=== PATIENT | male | born 1955 | race African-American/Black ===

== ENCOUNTER 2017-02-16 19:00 | Observation (INO) | payer MEDICAID ==
[~2017-02-16] VITALS: Ht 162.6 cm; Wt 86.1 kg
--- NOTE | ~2017-02-16 | HEMODYNAMI ---
PATIENT:KANDICE QUINONEZ MEDICAL RECORD: [id number] : 57 LOCATION:[facility] D.2104 ADMISSION DATE: 02/16/17 Generatedon:02/17/201716:51 Patient name: KANDICE QUINONEZ Patient #: [id number] SSN: : 1955 Date of study: 02/17/2017 Page: Of Hemodynamic Procedure Report Patient Data Patient Demographics Procedure consent was obtained First Name: KANDICE Gender: Male Last Name: DEVI : 1955 [facility] Initial: J Age: 61 year(s) Patient #: [id number] Race: Black Additional ID: [id number] Contact details Address: [address] [place] [address] State: [place] City: [facility] [place] Zip code: [address] Past Medical History Allergies Allergen Reaction Date Comments Reported Penicillins 02/17/2017 Codeine 02/17/2017 Other allergy 02/17/2017 hydrocodone, ketorolac, tromethamine Admission Admission Data Admission Date: 02/16/2017 Admission Time: 22:12 Room #: D.2104 Lab Results Lab Result Date: 02/17/2017 Lab Result Time: 0:00 Biochemistry Name Units Result Min Max BUN mg/dl 26 --(----)-* 7 18 Creatinine mg/dl 2 --(----)-* 0.6 1.3 CBC Name Units Result Min Max Hemoglobin g/dl 13.5 --(*---)-- 13.5 17.5 Procedure Procedure Types Cath Procedure Diagnostic Procedure LHC LHC w/Coronaries Miscellaneous Procedures Moderate Sedation up to 15 minutes Procedure Description Procedure Date Procedure Date: 02/17/2017 Procedure Start Time: 16:40 Procedure End Time: 16:47 Procedure Staff Name Function Jones Bhardwaj MD Performing Physician Beatrice Gaffney RT Scrub Sarah Brito RN Nurse Rob Francois RT Monitor Cirilo Weiner RT Battery Container Tester Procedure Data Cath Procedure Fluoroscopy Diagnostic fluoroscopy Total fluoroscopy Time: 1.3 time: 1.3 min min Diagnostic fluoroscopy Total fluoroscopy dose: 327 dose: 327 mGy mGy Contrast Material Contrast Material Type Amount (ml) Isovue 300 42 Entry Location Entry Primary Successful Side Size Upsize Upsize Entry Closure Succes sful Closure Location (Fr) 1 (Fr) 2 (Fr) Remarks Device Remarks Femoral Right 5 Fr Vascade artery Closure System Diagnostic catheters Device Type Used For End Catheter Placement Cordis 5Fr Pigtail LV Angiography Catheter (MP) Cordis 5Fr JL 4.0 Left Coronary Catheter (MP) Angiography Cordis 5Fr 3DRC Catheter Right Coronary (MP) Angiography Procedure Complications No complications Procedure Medications Medication Administration Route Dosage Versed I.V. 1 mg Fentanyl I.V. 50 mcg Oxygen NC 2 l/min Heparin Flush Bag added to field 2 bags (1000units/500ml NS) Heparin Flush Bag added to field 2 bags (1000units/500ml NS) Lidocaine 2% added to field 20 Versed I.V. 1 mg Fentanyl I.V. 50 mcg Versed I.V. 0.5 mg Fentanyl I.V. 25 mcg Hemodynamics Rest HGB: 13.5 (g/dl) Heart Rate: 74 (bpm) Snapshots Pre Cath Intra NCS Post Cath Vital Signs Time Heart Resp SPO2 etCO2 OW1hayq NIBP (mmHg) Rhythm Pain Sedatio n Rate (ipm) (%) (mmHg) (mmHg) Status Level (bpm) 16:31:49 74 17 97 0 0 152/101(124) NSR 0 (11) 10(A) , No pain 16:35:57 81 17 99 0 0 135/98(122) NSR 0 (11) 10(A) , No pain 16:40:07 70 15 86 0 0 145/109(124) NSR 0 (11) 10(A) , No pain 16:44:21 88 16 94 0 0 148/105(124) NSR 0 (11) 9(A) , No pain 16:50:03 87 19 98 0 0 152/113(131) NSR 0 (11) 9(A) , No pain Medications Time Medication Route Dose Verified Delivered Reason Notes Effec tiveness by by 16:24:00 Oxygen NC 2 Jones Goldman used for l/min Benton Bhardwaj MD procedure 16:24:02 Heparin Flush added 2 Jones Goldman used for Bag to bags Benton Bhardwaj MD procedure (1000units/500ml field NS) 16:24:16 Lidocaine 2% added 20ml Jones Landersrey used for to vial Benton Bhardwaj MD procedure field 16:37:58 Versed I.V. 1 mg Jones Sarah for Benton Brito RN sedation 16:38:06 Fentanyl I.V. 50 Jones Sarah for mcg Benton Brito RN sedation 16:38:42 Heparin Flush added 2 Jonesalden Goldman used for Bag to bags Benton Bhardwaj MD procedure (1000units/500ml field NS) 16:40:01 Versed I.V. 1 mg Jones Sarah for Benton Brito RN sedation 16:40:05 Fentanyl I.V. 50 Jones Sarah for mcg Benton Brito RN sedation 16:42:06 Versed I.V. 0.5 Jones Sarah for mg Benton Brito RN sedation 16:42:12 Fentanyl I.V. 25 Jones Sarah for mcg Benton Brito RN sedation Procedure Log Time Note 16:13:57 ACC Patient presents with Unstable Angina CCS Anginal Class 3--Marked limitation of physical activity, angina occurs with ordinary activity.. 16:13:58 Diagnostic Cath status Urgent 16:14:00 Cirilo PARKS(R) sent for patient. Start room use. 16:14:07 Time tracking: Regular hours 16:14:11 Plan of Care:Hemodynamics will remain stable., Cardiac rhythm will remain stable., Comfort level will be maintained., Respiratory function will remain adequate., Patient/ family verbilizes understanding of procedure., Procedure tolerated without complication., Recovers from procedure without complications.. 16:23:52 Patient received from Med II to CCL 1 Alert and oriented. Tansferred to table in Supine position. 16:23:54 Warm blankets applied, and venancio hugger turned on for patient comfort. 16:23:55 Correct patient and procedure confirmed by team. 16:23:58 Signed procedure consent form obtained from patient. 16:24:00 Oxygen 2 l/min NC was administered by Jones Bhardwaj MD; used for procedure; 16:24:02 Heparin Flush Bag (1000units/500ml NS) 2 bags added to field was administered by Jones Bhardwaj MD; used for procedure; 16:24:16 Lidocaine 2% 20ml vial added to field was administered by Jones Bhardwaj MD; used for procedure; 16:30:45 Vital chart was started 16:33:48 Baseline sample Acquired. 16:33:52 Rhythm: sinus rhythm 16:33:53 Full Disclosure recording started 16:34:09 H&P Date Dictated: 02/17/2017 Within 30 days and on chart.. 16:34:11 Pre-procedure instructions explained to patient. 16:34:11 Pre-op teaching completed and patient verbalized understanding. 16:34:35 Family unavailable. 16:34:38 Patient NPO since Lunch. 16:34:47 Patient allergic to Penicillins 16:34:51 Patient allergic to Codeine 16:35:25 Patient allergic to Other allergyhydrocodone, ketorolac, tromethamine 16:35:28 Is the patient allergic to Iodine/contrast media? No. 16:35:33 Is patient on blood thinner?No 16:35:35 Patient diabetic? No. 16:35:37 ----Pre-sedation anethsthesia assessment.---- 16:35:39 Previous problem with sedation/anesthesia? No ? 16:35:40 Snore? Yes 16:35:41 Sleep apnea? No 16:35:43 Deviated septum? No 16:35:45 Opens mouth fully? Yes 16:35:46 Sticks out tongue? Yes 16:36:00 Airway obstruction? Yes lung thrombectomy 16:36:05 Dentures? Yes out 16:36:10 Pre procedure: right dorsailis pedis pulse 1+ Palpable, but thready & weak; easily obliterated 16:36:14 Patient pain scale 0/10 ?. 16:36:18 IV patent on arrival in left hand with 0.9% NaCl at 10ml/hr. 16:36:40 Lab Result : Creatinine 2 mg/dl 16:36:40 Lab Result : BUN 26 mg/dl 16:36:40 Lab Result : Hemoglobin 13.5 g/dl 16:37:04 Lab results completed and on chart. 16:37:06 Right groin area was prepped with chlora-prep and draped in sterile fashion 16:37:07 Alarms reviewed by RRoland N. 16:37:08 Sharps counted by scrub and verified by R.N. 16:37:08 --------ALL STOP TIME OUT------ 16:37:09 Final Timeout: patient, procedure, and site verified with staff and physician. All members of the team are in agreement. 16:37:11 Right groin site verified by team. 16:37:14 Physical assessment completed. ASA score P 2 - A patient with mild systemic disease as per Jones Bhardwaj MD. 16:37:18 Sedation plan: IV Moderate Sedation Versed, Fentanyl 16:37:58 Versed 1 mg I.V. was administered by Sarah Brito RN; for sedation; 16:38:06 Fentanyl 50 mcg I.V. was administered by Sarah Brito RN; for sedation; 16:38:07 Use device set Femoral Dx 16:38:08 Acist Syringe opened to sterile field. 16:38:08 Bag Decanter opened to sterile field. 16:38:08 Medline Cath Pack opened to sterile field. 16:38:09 Terumo 5Fr Edwards Sheath opened to sterile field. 16:38:09 St Codey 260cm J .035 wire opened to sterile field. 16:38:10 Acist Hand Control opened to sterile field. 16:38:10 Acist Manifold opened to sterile field. 16:38:11 Diagnostic Infinity 5Fr Multipack catheter opened to sterile field. 16:38:11 Tegaderm 4 x 4 opened to sterile field. 16:38:42 Heparin Flush Bag (1000units/500ml NS) 2 bags added to field was administered by Jones Bhardwaj MD; used for procedure; 16:39:47 Zero performed for pressure channel P1 16:40:01 Versed 1 mg I.V. was administered by Sarah Brito RN; for sedation; 16:40:05 Fentanyl 50 mcg I.V. was administered by Sarah Brito RN; for sedation; 16:40:06 Procedure started. 16:40:24 Local anesthetic to right femoral artery with Lidocaine 2% by Jones Bhardwaj MD.INITIAL ACCESS ONLY 16:41:22 A 5 Fr sheath was inserted into the Right Femoral artery 16:41:28 A Cordis 5Fr Pigtail Catheter (MP) was advanced over the wire and used for LV Angiography. 16:41:36 LV angiography performed. 16:42:06 Versed 0.5 mg I.V. was administered by Sarah Brito RN; for sedation; 16:42:11 EF : 55 % 16:42:12 Fentanyl 25 mcg I.V. was administered by Sarah Brito RN; for sedation; 16:42:12 Catheter removed. 16:42:19 A Cordis 5Fr JL 4.0 Catheter (MP) was advanced over the wire and used for Left Coronary Angiography. 16:42:48 LCA angiography performed. 16:43:48 Catheter removed. 16:43:53 A Cordis 5Fr 3DRC Catheter (MP) was advanced over the wire and used for Right Coronary Angiography. 16:43:55 RCA angiography performed. 16:45:06 Catheter removed. 16:45:19 Sheath removed intact; hemostasis achieved with Vascade Closure System to the Right Femoral artery. 16:45:27 Vascade 5Fr Closure Device opened to sterile field. 16:45:30 Procedure ended.(Physican Out) 16:46:37 Fluoroscopy time 01.30 minutes. 16:46:42 Fluoroscopy dose: 327 mGy 16:46:42 Flurop Dose total: 327 16:46:50 Contrast amount:Isovue 300 42ml. 16:46:52 Sharps counted by scrub and verified by R.N. 16:46:53 Insertion/operative site no bleeding no hematoma. 16:46:55 Post-op/insertion site Right Femoral artery dressed using a 4 x 4 and Tegaderm. 16:46:58 Post right femoral artery:stable 16:47:00 Post Procedure Pulses reassessed and unchanged 16:47:02 Post procedure: right dorsailis pedis pulse 1+ Palpable, but thready & weak; easily obliterated. 16:47:05 Post procedure rhythm: sinus rhythm 16:47:07 Post procedure instruction explained to patient.Patient verbalizes understanding. 16:47:16 Procedure type changed to Cath procedure, Diagnostic procedure, LHC, LHC w/Coronaries, Miscellaneous Procedures, Moderate Sedation up to 15 minutes 16:47:20 Procedure and supply charges have been captured, reviewed, submitted and are correct. 16:47:35 Procedure Complication : No complications 16:47:37 Vital chart was stopped 16:47:37 See physician's report for complete and final results. 16:47:39 Report given to PCU. 16:47:42 Patient transfered to PCU with Bed. 16:47:44 Procedure ended. 16:47:44 Full Disclosure recording stopped 16:47:46 End room use (Document Last) Device Usage Item Name Manufacture Quantity Catalog Number Hospital Part Current Minima l Lot# / Charge Number Stock Stock Serial# Code Acist Acist 1 21186 489165 681751 313590 20 Syringe Medical Systems Inc Bag Microtek 1 2002S 398131 98743 941468 5 Decanter Medical Inc. Medline Cardinal 1 [id number] 608451 73204 062993 5 Cath Pack Health Terumo 5Fr Terumo 1 [id number] 118435 224625 881401 [address] Codey St Codey 1 [id number] 057998 693138 013351 30 260cm J .035 wire Acist Hand Acist 1 44494 602162 856316 759152 5 Control Medical Systems Inc Acist Acist 1 30784 497931 925502 057734 5 Manifold Medical Systems Inc Diagnostic Cardinal 1 [id number] 361515 54135 733157 30 Infinity Health 5Fr Multipack catheter Tegaderm 4 3M 1 1626W 335600 432516 034192 5 x 4 Cordis 5Fr Cardinal 1 [id number] 5 Pigtail Health Catheter (MP) Cordis 5Fr Cardinal 1 [id number] 5 JL 4.0 Health Catheter (MP) Cordis 5Fr Cardinal 1 864147 5 3DRC Health Catheter (MP) Vascade Cardiva 1 [id number] 954153 24538 842260 10 5Fr Medical, Closure Inc. Device Signature Audit Printer Stage Time Signature Unsigned Intra-Procedure 02/17/2017 Rob Francois 4:51:08 PM RT(R) Signatures Monitor : Rob Francois RT Signature : Date : Time : [facility] [address] [place] [address]
--- NOTE | ~2017-02-16 | OP ---
PATIENT NAME: KANDICE QUINONEZ MEDICAL RECORD: [id number] :57 LOCATION:D.M2 D.2104 ADMISSION DATE:02/16/17 SURGEON: RAJESH JAIN MD OPERATION DATE: 02/17/17 PROCEDURES: 1. Left heart catheterization. 2. Selective coronary angiography. 3. Left ventriculogram. INDICATION: 1. Chest pain. 2. Hypertension. PROCEDURE IN DETAIL: After informed consent was obtained and after detailed explanation of risks, benefits, as well as alternative therapies, the patient elected to proceed with angiogram. The right femoral area was prepped and draped in a normal sterile fashion. The right femoral artery was cannulated via modified Seldinger technique with placement of 5-Portuguese sheath. All catheters exchanged through this sheath. FINDINGS: The left ventriculogram was performed in standard 30 degree CHAO view, reveals good cardiac wall motion throughout all segments. Overall ejection fraction estimated at 60%. SELECTIVE CORONARY ANGIOGRAPHY: Left main, left anterior descending, left circumflex, and right coronary artery are all smooth-walled vessels with no angiographic evidence of coronary artery disease. OVERALL IMPRESSION: 1. No angiographic evidence of coronary artery disease. 2. Normal left heart pressure. 3. Chest pain is noncardiac in etiology. No further cardiac workup needs to be ascertained. RAJESH JAIN MD CC: [id number] DICTATION DATE: 02/17/17 1500 AZURE ARCHITECT: SHAYLA 02/18/17 1443 [facility] IN 02/18/17 [facility] [address] [place] [address]
[~2017-02-16 19:00] MED LIST: CIPRO500 MG PO; COUMADIN5 MG PO; COZAAR50 MG PO; DILAUDID8 MG PO; MAXIPIME INJ2 GM IV; NO HOME MED; NORCO 10/325 TA1 TA1 PO; PERCOCET 10/3251 TA1 PO; SALINE FLUSH10 ML IJ; ZESTRIL10 MG PO; ZYVOX600 MG PO; [UNRECOGNIZED DRUG - OTHER]
[2017-02-16 19:38] LABS: BASOPHILS 0.3 % (0-2); EOSINOPHILS 2.3 % (0-7); HEMATOCRIT 43.6 % (42.0-54.0); HEMOGLOBIN 15.5 g/dL (13.5-17.5); IMMATURE GRANULOCYTES 0.2 % (0-5); LYMPHOCYTES 38.5 % (15-50); MCH 28.5 pg (26.0-34.0); MCHC 35.6 g/dL (31.0-37.0); MCV 80.1 fL (80.0-100.0); MEAN PLATELET VOLUME 9.4 fL (7.4-10.4); MONOCYTES 9.9 % (2-11); NEUTROPHILS 48.8 % (40-80); PLATELET COUNT 175 10x3/uL (130-400); RBC 5.44 10x6/uL (4.20-6.10); RDW 14.9 % (11.5-14.5); WBC 10.6 10x3/uL (4.8-10.8)
[2017-02-16 20:07] LABS: ALT (SGPT) 44 U/L (10-68); CALC OSMOLALITY 283 mosm/kg (275-300); CALCIUM 9.2 mg/dL (8.5-10.1); CARBON DIOXIDE 20.5 mmol/L (21.0-32.0); CHLORIDE - SERUM 101 mmol/L (98-107); CHOL - HDL RATIO 2.2 ratio (2.3-4.9); CHOLESTEROL, TOTAL 202 mg/dL (0-200); CKMB 2.2 U/L (0.0-3.6); CREATINE KINASE 416 UL (21-232); CREATININE - SERUM 2.7 mg/dL (0.6-1.3); GLUCOSE 92 mg/dL (74-106); HDL CHOLESTEROL 94 mg/dL (32-96); LDL CHOLESTEROL 92 mg/dL (0-100); POTASSIUM - SERUM 3.6 mmol/L (3.5-5.1); PROTEIN - SERUM 8.1 g/dL (6.4-8.2); SODIUM 139 mmol/L (136-145); TRIGLYCERIDE 83 mg/dL (30-200); UREA NITROGEN 28 mg/dL (7-18); eGFR NON AFRICAN AMERICAN 26 mL/min (90-120)
[2017-02-16 20:20] LABS: ALKALINE PHOSPHATASE 67 U/L (46-116); TROPONIN-I < 0.017 ng/mL (0.000-0.060)
[2017-02-16 21:35] LABS: APPEARANCE CLEAR (CLEAR); BILIRUBIN NEGATIVE (NEGATIVE); COLOR YELLOW (YELLOW); GLUCOSE NEGATIVE (NEGATIVE); KETONE NEGATIVE (NEGATIVE); LEUKOCYTE ESTERASE NEGATIVE (NEGATIVE); NITRITE NEGATIVE (NEGATIVE); PROTEIN NEGATIVE (NEGATIVE); SPECIFIC GRAVITY 1.015 (1.005-1.020); UROBILINOGEN NORMAL (NORMAL)
--- NOTE | 2017-02-16 22:19 | NUR ---
REPORT RECIEVED FROM ANNIE RASMUSSEN FROM ER. PT ARRIVING BY WHEELCHAIR APPROX 15 MIN
[2017-02-16 22:26] LABS: CREATINE KINASE 446 UL (21-232)
[2017-02-16 22:27] LABS: TROPONIN-I < 0.017 ng/mL (0.000-0.060)
--- NOTE | 2017-02-16 22:54 | NUR ---
PT ARRIVED VIA WHEELCHAIR. IV TO LEFT ARM. PT STATES FEELING DIZZY BUT WANTS A SHOWER. WILL MONITOR PT WHILE UP IN SHOWER. PT IV TO LEFT ARM S/L. PT STATES PAIN MED DID NOT HELP PAIN ONLY MADE HIS EARS RING. PT SITTING IN CHAIR NOW. DENIES ANY NEEDS OTHER THAN PAIN AND SHOWER
--- NOTE | 2017-02-17 00:45 | NUR ---
PT RESTING AND STILL TALKING ABOUT PAST EVENTS. NS INFUSING AT 200ML/HR LEFT IV DILAUDID GIVEN FOR PAIN 03/11. PT WANTS TO REST. WILL TRY TO CLUSTER CARE WITH TECH. PT DENIES ANY OTHER NEEDS. WILL CONTINUE TO MONITOR
--- NOTE | 2017-02-17 02:33 | NUR ---
PT UP AND WALKING AROUND MED 2 AND WENT DOWN TO VENDING AREA TO LOOK FOR A BURRITO. PT VERBALIZED UNDERSTANDING THAT HE NEEDED TO STAY ON HOSPITAL PROPERTY FOR HIS SAFTEY. TRAINING SYSTEMS OFFICER IS ON. WILL CONTINUE TO WATCH FOR PT.
[2017-02-17 04:51] VITALS: BP 154/80
[2017-02-17 05:36] VITALS: BP 158/120
[2017-02-17 06:14] LABS: BASOPHILS 0.2 % (0-2); EOSINOPHILS 3.7 % (0-7); HEMATOCRIT 39.9 % (42.0-54.0); HEMOGLOBIN 13.5 g/dL (13.5-17.5); IMMATURE GRANULOCYTES 0.2 % (0-5); MCH 27.3 pg (26.0-34.0); MCHC 33.8 g/dL (31.0-37.0); MCV 80.8 fL (80.0-100.0); MEAN PLATELET VOLUME 10.2 fL (7.4-10.4); MONOCYTES 11.6 % (2-11); NEUTROPHILS 35.3 % (40-80); PLATELET COUNT 175 10x3/uL (130-400); RBC 4.94 10x6/uL (4.20-6.10); RDW 14.8 % (11.5-14.5)
[2017-02-17 07:04] LABS: CALC OSMOLALITY 280 mosm/kg (275-300); CALCIUM 8.4 mg/dL (8.5-10.1); CARBON DIOXIDE 24.3 mmol/L (21.0-32.0); CHLORIDE - SERUM 103 mmol/L (98-107); CKMB 2.5 U/L (0.0-3.6); CREATINE KINASE 378 UL (21-232); GLUCOSE 103 mg/dL (74-106); POTASSIUM - SERUM 3.5 mmol/L (3.5-5.1); SODIUM 138 mmol/L (136-145); TROPONIN-I < 0.017 ng/mL (0.000-0.060); UREA NITROGEN 26 mg/dL (7-18); eGFR NON AFRICAN AMERICAN 36 mL/min (90-120)
--- NOTE | 2017-02-17 08:57 | NUR ---
INTRODUCED MYSELF TO PT PRIMARY RN FOR TODAYS SHIFT. PT A&O RESTING IN BED EATING BREAKFAST. PT C/O CHEST PAIN WITHOUT RADIATING ANYWHERE AND CHRONIC BACK PAIN. REQUESTING AND PROVIDED WITH PRN DILAUDID. REPLACED NS FLUID BAG AND STARTED VIA L.AC PIV WITH HANH CDI AND SWAB CAPS IN USE. RATE @75ML/HR PER VERBAL ORDER FROM MARIBEL OROPEZA APN AT BEDSIDE. MARIBEL GOING OVER DISEASE PROCESS AND TALKED WITH PT ABOUT HAVING A HEART CATH LATER TODAY WITH . PT VERBALIZED UNDERSTANDING AND WANTS IT DONE. PT IS TO BE NPO AFTER BREAKFAST AND VERBALIZED UNDERSTANDING. NO FURTHER NEEDS AT THIS TIME. CL IN REACH, BED IN LOWEST, SIDE RAILS X2. WILL CPOC.
[2017-02-17 09:07] VITALS: BP 142/92
[2017-02-17 10:07] LABS: CKMB 2.6 U/L (0.0-3.6); CREATINE KINASE 406 UL (21-232); TROPONIN-I < 0.017 ng/mL (0.000-0.060)
--- NOTE | 2017-02-17 11:17 | NUR ---
PT DEMANDING HIS WALLET BE LOCKED UP IN SAFE PRIOR TO PROCEDURE. CALLED ADMINISTRATIONS AND BELONGINGS WERE VERIFIED AND WITNESSED AND SENT TO SAFE. NO FURTHER NEEDS AT THIS TIME.
[2017-02-17 12:08] VITALS: BP 172/79
[2017-02-17 13:51] VITALS: Ht 162.6 cm; Wt 86.1 kg
--- NOTE | 2017-02-17 15:30 | NUR ---
CATH CALLED FOR PRE-OP AND IT WAS COMPLETED. PT READY TO LEAVE FOR HEART CATH. DENIES ANY QUESTIONS OR CONCERNS. CATH TEAM TAKING PT AT THIS TIME. NO CURRENT NEEDS. WILL CPOC.
[2017-02-17 16:32] VITALS: BP 132/85
--- NOTE | 2017-02-17 17:18 | NUR ---
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 VSS AND BEING MONITERED Q15 PER POLICY. MICHEL DRSG CDI NO S/S OF HEMATOMA OR BLEEDING NOTED. PT IS ON BEDREST FOR 2 HOURS AND VERBALIZED UNDERSTANDING TO LAY FLAT FOR THAT DURATION. INITIATED FLUIDS BACK VIA L.AC PIV WITH DRSG CDI AND SWAB CAPS IN USE NS @100ML/HR. PT VERY SLEEPY AND HAS FAMILY AT BEDSIDE NO CURRENT NEEDS. WILL CTM.
--- NOTE | 2017-02-17 18:02 | NUR ---
VSS AND STILL BEING RECORDED AND MONITERED PER POLICY. PT RESTING IN BED WITH EYES CLOSED. PERIPHERAL PULSES INTACT. R.GROIN DRSG CDI, NO S/S OF BLEEDING OR HEMATOMA NOTED. WILL CTM.
[2017-02-17 23:32] VITALS: BP 150/95
--- NOTE | 2017-02-18 00:42 | NUR ---
RECEIVED IN BEDROOM. RESTING IN BED WITH EYES CLOSED. RESPONDS TO VOICE. DENIES NEEDS AT THIS TIME. CCALL LIGHT IN REACH. BED ALARM ON.
[2017-02-18 06:24] VITALS: BP 146/96
--- NOTE | 2017-02-18 08:01 | NUR ---
PT RESTING IN BED, DENIES PAIN. RT GROIN DRESSING CDI. PT DENIES NEEDS. WCTM.
[2017-02-18] MEDS ORDERED: LISINOPRIL-HCTZ1 T13 PO (08:05)
[2017-02-18 08:42] VITALS: BP 146/98
--- NOTE | 2017-02-18 09:00 | NUR ---
PT REQ AND REC'D PRN PAIN MEDICATION. PT DENIES FURTHER NEEDS. WCTM.
--- NOTE | 2017-02-18 11:21 | NUR ---
PT DISCHARGE PAPERS REVIEWED. NEW PRESCRIPTION GIVEN TO PATIENT. PT WAITING FOR RIDE AT THIS TIME. WCTM.
--- NOTE | 2017-02-18 11:43 | NUR ---
PT ESCORTED DOWN TO LOBBY BY STAFF VIA WC. PT TO DC HOME WITH FAMILY.
== END 2017-02-18 11:51 | disposition home or self-care (01) ==
LOC: D.ER 19:00 → OBSVTIME 22:12 → D.M2 22:12
PROVIDERS: Emergency Medicine; Family Medicine; ADMIT Family Medicine
DX: R07.89 Other chest pain (principal); I10 Essential (primary) hypertension

== ENCOUNTER 2017-07-12 17:56 | Emergency (ER) | payer MEDICAID ==
[~2017-07-12 17:56] MED LIST changes: +LISINOPRIL-HCTZ1 T13 PO
[2017-08-12] MEDS ORDERED: NORVASC10 MG PO (10:21)
[2017-08-12] MEDS ORDERED: CHLORTHALIDONE25 MG PO (10:22)
[2017-08-12] MEDS ORDERED: METOPROLOL TART25 MG PO (10:24)
== END 2017-07-12 20:32 | disposition home or self-care (01) ==
LOC: D.ER 17:56
DX: S80.12XA Contusion of left lower leg, initial encounter (principal); W22.8XXA Striking against or struck by other objects, initial encounter; Y93.89 Activity, other specified; Y92.012 Bathroom of single-family (private) house as the place of occurrence of the external cause; E11.9 Type 2 diabetes mellitus without complications

== ENCOUNTER 2017-08-06 10:31 | Emergency (ER) | payer MEDICAID ==
[2017-08-12] MEDS ORDERED: NORVASC10 MG PO (10:21)
[2017-08-12] MEDS ORDERED: CHLORTHALIDONE25 MG PO (10:22)
[2017-08-12] MEDS ORDERED: METOPROLOL TART25 MG PO (10:24)
== END 2017-08-06 13:16 | disposition home or self-care (01) ==
LOC: D.ER 10:31
DX: S62.102A Fracture of unspecified carpal bone, left wrist, initial encounter for closed fracture (principal); Y04.2XXA Assault by strike against or bumped into by another person, initial encounter; Y93.89 Activity, other specified; Y92.89 Other specified places as the place of occurrence of the external cause

== ENCOUNTER 2017-08-13 05:50 | Day surgery (SDC) | payer MEDICAID ==
[2017-08-12 11:18] LABS: HEMATOCRIT 42.4 % (42.0-54.0); HEMOGLOBIN 14.4 g/dL (13.5-17.5); MCV 82.3 fL (80.0-100.0); MEAN PLATELET VOLUME 8.4 fL (7.4-10.4); RBC 5.15 10x6/uL (4.20-6.10); RDW 15.1 % (11.5-14.5); WBC 8.2 10x3/uL (4.8-10.8)
[2017-08-12 11:43] LABS: ANION GAP 11.4 mmol/L (8-16); CALCIUM 9.4 mg/dL (8.5-10.1); CARBON DIOXIDE 29.4 mmol/L (21.0-32.0); CREATININE - SERUM 1.2 mg/dL (0.6-1.3); POTASSIUM - SERUM 3.8 mmol/L (3.5-5.1)
[~2017-08-13] VITALS: Ht 175.3 cm; Wt 82.6 kg
--- NOTE | ~2017-08-13 | OP ---
PATIENT NAME: KANDICE QUINONEZ MEDICAL RECORD: [id number] :57 LOCATION:[facility] ADMISSION DATE: SURGEON: RED JUAREZ DO DATE OF OPERATION: 08/13/2017 PROCEDURE PERFORMED: Left fifth metacarpal head open reduction internal fixation. PREOPERATIVE DIAGNOSIS: Left fifth metacarpal head fracture. POSTOPERATIVE DIAGNOSIS: Left fifth metacarpal head fracture. INDICATIONS: Mr. Quinonez is a 62-year-old male who struck a tiller in his porch approximately 2 weeks ago and sustained a fifth metacarpal what appeared to be neck fracture and was displaced. He was seen in my clinic yesterday and said it bothered him and did not want to have the pain, the deformity, it was severely angulated and the head was subluxed inferiorly to the metacarpal shaft, he wanted it fixed. He was consented for a closed reduction percutaneous pinning; however, he was informed that if we were not able to do this closed, we would do an open reduction internal fixation. He was okay with that. SURGEON: Red Juarez DO DESCRIPTION OF PROCEDURE: The patient was taken to the operative suite, laid in supine position, given vancomycin preoperatively due to his PENICILLIN allergy. The left upper extremity was prepped and draped with a tourniquet above the elbow. Timeout was performed. Everyone was in agreement with the correct side, site and the patient. The attempt with the reduction closed with the port pin and this did not work, could not get the reduction. We then opened with an incision over the ulnar side of the hand, on the ulnar side of the fifth metacarpal at the distal extent of it. Careful dissection was made down to the capsule and the capsule was incised on the ulnar side. The fracture was encountered and reduced, seemed to be a large head split fracture with severe comminution. It was decided at that time we would put a plate on it, got somewhat of reduction and put a plate on the shaft and then I was only able to get one locking screw into the head. Once this was done, the more ulnar fragment lag screw was placed. These were 1.2 lag screws. A lag screw was placed from ulnar to radial and diagonal for oblique fashion to try to get some of the more comminuted fracture piece reduced. Then, the fracture was reduced to the shaft and a second screw was put into the plate in the shaft holding reduction in adequate position. X-rays were taken. The tourniquet was let down at 63 minutes, had been put up prior the incision, after the upper extremity was exsanguinated with an Esmarch. Once this was done, the tourniquet was let down and coagulation was made and a DBM was placed in the defect. It was there due to severe comminution and the capsule was then closed with 4-0 Ethibond in a [id number] fashion. The skin was then closed with 3-0 Vicryl in inverted interrupted and 5-0 Monocryl was run on the skin. Steri-Strips were placed on the skin and then 10 mL of 0.5% Marcaine were injected around the incision. After this was done, Adaptic, 4 x 4s, Webril and a splint was placed on the patient and an Ward wrap was placed over that. The patient was awakened and taken to recovery in stable condition. Blood loss approximately 220 mL. TRANSINT:[id number] Voice Confirmation ID: [id number] DOCUMENT ID: [id number] OPERATIVE REPORT [id number] KANDICE QUINONEZ,RED Beebe DO at 0926 CC: [id number] DICTATION DATE: 08/13/17 1045 LEAD TRAINER: 08/13/17 1333 [facility] 08/13/17 [facility] [address] [place] [address]
[~2017-08-13 05:50] MED LIST changes: +CHLORTHALIDONE25 MG PO; +METOPROLOL TART25 MG PO; +NORVASC10 MG PO
[2017-08-13 06:59] VITALS: Ht 175.3 cm; Wt 82.6 kg
[2017-08-13] MEDS ORDERED: BACTRIM DS TABL1 TAB PO (10:39)
[2017-08-13] MEDS ORDERED: PERCOCET 10/3251 TA1 PO (10:39)
== END 2017-08-13 12:30 | disposition home or self-care (01) ==
LOC: D.OPS 05:50 → D.PAN 11:00 → D.OPS 12:30
PROVIDERS: Anesthesiology
DX: S62.337A Displaced fracture of neck of fifth metacarpal bone, left hand, initial encounter for closed fracture (principal); X58.XXXA Exposure to other specified factors, initial encounter; F17.200 Nicotine dependence, unspecified, uncomplicated; I10 Essential (primary) hypertension; E11.9 Type 2 diabetes mellitus without complications; Z01.812 Encounter for preprocedural laboratory examination

== ENCOUNTER 2018-01-15 01:48 | Emergency (ER) | payer MEDICAID ==
[~2018-01-15] VITALS: Ht 175.3 cm; Wt 84.1 kg
[~2018-01-15 01:48] MED LIST changes: +BACTRIM DS TABL1 TAB PO
[2018-01-15 01:53] VITALS: Ht 175.3 cm; Wt 84.1 kg
[2018-01-15 02:39] LABS: BASOPHILS 0.1 % (0-2); EOSINOPHILS 1.7 % (0-7); HEMATOCRIT 39.8 % (42.0-54.0); HEMOGLOBIN 14.3 g/dL (13.5-17.5); IMMATURE GRANULOCYTES 0.4 % (0-5); LYMPHOCYTES 44.6 % (15-50); MCH 28.8 pg (26.0-34.0); MCHC 35.9 g/dL (31.0-37.0); MCV 80.2 fL (80.0-100.0); MEAN PLATELET VOLUME 9.7 fL (7.4-10.4); MONOCYTES 5.1 % (2-11); NEUTROPHILS 48.1 % (40-80); RBC 4.96 10x6/uL (4.20-6.10); RDW 14.6 % (11.5-14.5); WBC 10.4 10x3/uL (4.8-10.8)
[2018-01-15 02:56] LABS: PLATELET COUNT 155 10x3/uL (130-400)
[2018-01-15 02:59] LABS: ALBUMIN 3.5 g/dL (3.4-5.0); ALKALINE PHOSPHATASE 62 U/L (46-116); ALT (SGPT) 60 U/L (10-68); BILIRUBIN - TOTAL 0.28 mg/dL (0.2-1.3); CALC OSMOLALITY 280 mosm/kg (275-300); CARBON DIOXIDE 23.1 mmol/L (21.0-32.0); CHLORIDE - SERUM 100 mmol/L (98-107); CREATININE - SERUM 1.5 mg/dL (0.6-1.3); POTASSIUM - SERUM 3.4 mmol/L (3.5-5.1); PROTEIN - SERUM 7.5 g/dL (6.4-8.2); SODIUM 137 mmol/L (136-145); UREA NITROGEN 18 mg/dL (7-18); eGFR NON AFRICAN AMERICAN 51 mL/min (90-120)
[2018-01-15 03:00] LABS: GLUCOSE 192 mg/dL (74-106)
[2018-01-15 03:08] LABS: APTT 34.1 SECONDS (22.8-39.4); INR 1.05 (0.85-1.17); PROTIME 13.3 SECONDS (11.6-15.0)
[2018-01-15 03:09] LABS: D-DIMER-QUANTITATIVE 0.28 ug/mLFEU (0.20-0.54)
[2018-01-15 03:10] LABS: CKMB 1.2 U/L (0.0-3.6); CREATINE KINASE 244 UL (21-232); MAGNESIUM - SERUM 2.1 mg/dL (1.8-2.4)
[2018-01-15 03:12] LABS: TROPONIN-I < 0.017 ng/mL (0.000-0.060)
[2018-01-15 09:46] VITALS: BP 168/87
[2018-03-04] MEDS ORDERED: VITAMIN D5000 UNIT PO (09:24)
[2018-03-04] MEDS ORDERED: EZFE 200200 MG PO (09:25)
== END 2018-01-15 09:47 | disposition home or self-care (01) ==
LOC: D.ER 01:48
PROVIDERS: Family Medicine
DX: F10.129 Alcohol abuse with intoxication, unspecified (principal); R07.9 Chest pain, unspecified; E11.9 Type 2 diabetes mellitus without complications; B19.20 Unspecified viral hepatitis C without hepatic coma; I10 Essential (primary) hypertension; F17.200 Nicotine dependence, unspecified, uncomplicated; R00.0 Tachycardia, unspecified

== ENCOUNTER → 2018-02-04 06:51 | Outpatient (CLI) | payer MEDICAID ==
[2018-01-15 01:53] VITALS: BMI 27.3
[~2018-02-04 06:51] MED LIST changes: +EZFE 200200 MG PO; +VITAMIN D5000 UNIT PO
== END | disposition home or self-care (01) ==
LOC: D.MRI 06:51
DX: S46.002D Unspecified injury of muscle(s) and tendon(s) of the rotator cuff of left shoulder, subsequent encounter (principal); X58.XXXA Exposure to other specified factors, initial encounter

== ENCOUNTER 2018-03-07 05:36 | Day surgery (SDC) | payer MEDICAID ==
[2018-03-04 10:12] LABS: HEMATOCRIT 41.7 % (42.0-54.0); HEMOGLOBIN 14.8 g/dL (13.5-17.5); MCHC 35.5 g/dL (31.0-37.0); MCV 81.8 fL (80.0-100.0); MEAN PLATELET VOLUME 9.4 fL (7.4-10.4); RBC 5.1 10x6/uL (4.20-6.10); RDW 14.9 % (11.5-14.5); WBC 7.5 10x3/uL (4.8-10.8)
[2018-03-04 10:34] LABS: ALBUMIN 3.7 g/dL (3.4-5.0); ANION GAP 6.9 mmol/L (8-16); BILIRUBIN - TOTAL 0.42 mg/dL (0.2-1.3); CALCIUM 9.1 mg/dL (8.5-10.1); CARBON DIOXIDE 35.8 mmol/L (21.0-32.0); CREATININE - SERUM 1.2 mg/dL (0.6-1.3); POTASSIUM - SERUM 3.7 mmol/L (3.5-5.1); PROTEIN - SERUM 7.8 g/dL (6.4-8.2)
[~2018-03-07] VITALS: Ht 175.3 cm; Wt 81.6 kg
--- NOTE | ~2018-03-07 | OP ---
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 PROCEDURE: 1. Left shoulder arthroscopy with arthroscopic distal clavicle excision. 2. Arthroscopic subacromial decompression, acromioplasty and bursectomy. SURGEON: Narcisa Blakely MD ANESTHESIA: General. INTRAOPERATIVE COMPLICATIONS: None. SUMMARY OF PATHOLOGIC FINDINGS: The patient had some mild undersurface tearing; however, the rotator cuff at no point had any tearing greater than 50%. There was attritional tearing of the acromial side. The acromion was a type 3 with downward sloping acromion. Acromioclavicular arthritis was noted as well as excoriation of the coracoacromial ligament. OPERATIVE SUMMARY IN DETAIL: After obtaining the appropriate preoperative orthopedic surgery consent as well as anesthetic consultation, evaluation and clearance, the patient was brought to the operating room and placed on the operating table in supine position. After general laryngeal mask airway was administered, the patient was placed in right lateral decubitus position. All pressure points were well padded to include down leg peroneal pad as well as axillary roll. The patient was held firmly to the operating table using vacuum pack suction system. Left upper extremity and shoulder were prepped and draped in routine sterile fashion. The arm was held in the Arthrex traction boom at 30 degrees of forward flexion and 30 degrees of abduction with 10 pounds of traction laterally. Arthroscopy was established at the glenohumeral joint at the posterior portal. Anterior portal was established in the anterior safe interval. Diagnostic arthroscopy revealed the above findings. Attention was turned to the subacromial space. While in the subacromial space, the [place] ablator from [employer] was utilized to denude the undersurface of the acromion of all soft tissue elements and release the coracoacromial ligament. Having completed this, a 5-0 barrel bur was used to perform acromioplasty at the level of acromioclavicular joint. Then, under separate arthroscopic portal under direct visualization, distal clavicle was excised for 1 cm. Having completed this, attention was turned to the rotator cuff. All subacromial bursa was taken down. The rotator cuff was thoroughly explored, debridement of attritional fibers were done; however, the rotator cuff was not seen to be torn on this side. Having completed this, arthroscopy portals were closed in routine interrupted fashion using 4-0 Prolene. Sterile dressing was applied. The patient was awakened, taken to recovery room in stable condition. All final needle and sponge counts were correct. OPERATIVE REPORT [id number] KANDICE QUINONEZ TRANSINT:[id number] Voice Confirmation ID: [id number] DOCUMENT ID: [id number] REDDY DOYLE, NARCISA KNOX at 1558 CC: [id number] DICTATION DATE: 03/07/18 1320 RESTAURANT CULINARY MANAGER: 03/07/18 1401 [facility] 03/07/18 [facility] [address] [place] [address]
[2018-03-07 06:24] VITALS: BP 136/87; Ht 175.3 cm; Wt 81.6 kg
[2018-03-07] MEDS ORDERED: PERCOCET 10/3251 TA1 PO (10:36)
== END 2018-03-07 12:55 | disposition home or self-care (01) ==
LOC: D.OPS 05:36 → D.PAN 10:30 → D.OPS 12:55
PROVIDERS: Anesthesiology
DX: M19.012 Primary osteoarthritis, left shoulder (principal); M25.812 Other specified joint disorders, left shoulder

== ENCOUNTER → 2018-04-15 06:18 | Outpatient (CLI) | payer MEDICAID ==
[2018-03-07 06:24] VITALS: BMI 26.6
== END | disposition home or self-care (01) ==
LOC: D.MRI 06:18
DX: S46.002D Unspecified injury of muscle(s) and tendon(s) of the rotator cuff of left shoulder, subsequent encounter (principal); X58.XXXA Exposure to other specified factors, initial encounter

== ENCOUNTER 2018-05-25 16:56 | Emergency (ER) | payer MEDICAID ==
[~2018-05-25] VITALS: Ht 175.3 cm; Wt 81.8 kg
[2018-05-25 17:01] VITALS: Ht 175.3 cm; Wt 81.8 kg
[2018-05-25] MEDS ORDERED: NORCO 7.5/325 T1 TA1 PO (19:10)
[2018-05-25] MEDS ORDERED: OMNICEF300 MG PO (19:10)
[2018-05-25 22:18] VITALS: BP 158/99
== END 2018-05-25 20:15 | disposition home or self-care (01) ==
LOC: D.ER 16:56
DX: H66.92 Otitis media, unspecified, left ear (principal); E11.9 Type 2 diabetes mellitus without complications; I10 Essential (primary) hypertension; F17.200 Nicotine dependence, unspecified, uncomplicated

== ENCOUNTER 2018-12-16 08:00 | Day surgery (SDC) | payer MEDICAID ==
[2018-12-15 10:43] LABS: BASOPHILS 0.2 % (0-2); HEMATOCRIT 45.6 % (42.0-54.0); HEMOGLOBIN 16.4 g/dL (13.5-17.5); IMMATURE GRANULOCYTES 0.2 % (0-5); LYMPHOCYTES 34.4 % (15-50); MCH 28.1 pg (26.0-34.0); MCV 78.1 fL (80.0-100.0); MEAN PLATELET VOLUME 9.3 fL (7.4-10.4); MONOCYTES 10.5 % (2-11); NEUTROPHILS 53.7 % (40-80); PLATELET COUNT 173 10x3/uL (130-400); RBC 5.84 10x6/uL (4.20-6.10); RDW 14.4 % (11.5-14.5)
[2018-12-15 10:58] LABS: ALBUMIN 4.4 g/dL (3.4-5.0); ANION GAP 9.7 mmol/L (8-16); BILIRUBIN - TOTAL 0.82 mg/dL (0.2-1.3); CALCIUM 9.7 mg/dL (8.5-10.1); CARBON DIOXIDE 31.8 mmol/L (21.0-32.0); CREATININE - SERUM 1.1 mg/dL (0.6-1.3); POTASSIUM - SERUM 3.5 mmol/L (3.5-5.1); PROTEIN - SERUM 8.4 g/dL (6.4-8.2)
[2018-12-15 11:09] LABS: APTT 37.4 SECONDS (22.8-39.4); INR 1.04 (0.85-1.17); PROTIME 13.5 SECONDS (11.6-15.0)
[~2018-12-16 08:00] MED LIST changes: +NORCO 7.5/325 T1 TA1 PO; +OMNICEF300 MG PO; +ZANAFLEX4 MG PO
[2018-12-16 09:05] VITALS: BP 108/78; BMI 26.6
[2018-12-16] MEDS ORDERED: SULFAMETHOXAZOL1 TA3 PO (13:33)
[2018-12-16] MEDS ORDERED: ULTRAM50 MG PO (13:33)
--- NOTE | 2018-12-16 14:56 | NUR ---
PT CONTINUED TO C/O PAIN AT 05/11. DR. CLAY NOTIFIED AND AT BEDSIDE. BLOCK PERFORMED BY DR. CLAY.
--- NOTE | 2018-12-17 06:56 | OP ---
PATIENT NAME: KANDICE QUINONEZ MEDICAL RECORD: [id number] :57 LOCATION:[facility] ADMISSION DATE: SURGEON: RED JUAREZ DO DATE OF OPERATION: 12/16/2018 PROCEDURE PERFORMED: Removal of hardware, left fifth metacarpal. PREOPERATIVE DIAGNOSIS: Painful hardware, left fifth metacarpal. POSTOPERATIVE DIAGNOSIS: Painful hardware, left fifth metacarpal. 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 He underwent open reduction internal fixation and he said recently the hardware has been giving problems and causing some pain. He wanted it out. He is aware of the increased risks of infection, bleeding, damage to nerves and vessels, need for further surgery, another fracture. He is okay with that and signed the consent. SURGEON: Red Juarez DO DESCRIPTION OF PROCEDURE: The patient was taken to the operative suite after given a block by anesthesia, given 2 grams Ancef preoperatively. The left upper extremity was prepped and draped in sterile fashion. Timeout was performed. Everyone was agreeance with the correct side, site, patient and procedure. Incision was then made over the previous incision. Careful dissection was made down to the plate and 2 screws proximally and 1 distally that were in the plate were removed and then the plate was removed. He did have one retained lag screw that was in there. I told him I would not be taking that out and I did not. The tourniquet had been inflated prior to start of procedure and was up for 9 minutes, it was then let down. Any bleeding was coagulated with the bipolar. The capsule of the metacarpophalangeal joint was then closed with 3-0 Vicryl in [id number] fashion and then the skin was closed with 5-0 Monocryl in inverted interrupted fashion. Steri-Strips placed on the skin. Adaptic, 4 x 4's, cast padding and a 3-inch Ward wrap was then placed on the patient. He is awakened and taken to recovery in stable condition. BLOOD LOSS: Minimal. COMPLICATIONS: None. TRANSINT:[id number] Voice Confirmation ID: [id number] DOCUMENT ID: [id number] RED JUAREZ DO at 0656 CC: [id number] DICTATION DATE: 12/16/18 1329 IMPORT COORDINATOR: 12/16/18 2133 [facility] 12/16/18 [id number] [place] [address]
== END 2018-12-16 17:08 | disposition home or self-care (01) ==
LOC: D.OPS 08:00 → D.PAN 11:00 → D.OPS 11:00
PROVIDERS: Anesthesiology; ATTEND Orthopaedic Surgery
DX: T84.84XA Pain due to internal orthopedic prosthetic devices, implants and grafts, initial encounter (principal); Z01.812 Encounter for preprocedural laboratory examination

== ENCOUNTER → 2018-12-20 08:32 | Outpatient (CLI) | payer MEDICAID ==
[2018-12-16 09:05] VITALS: BMI 26.6
[~2018-12-20 08:32] MED LIST changes: +SULFAMETHOXAZOL1 TA3 PO; +ULTRAM50 MG PO
== END | disposition home or self-care (01) ==
LOC: D.CT 12-19 11:30
PROVIDERS: ATTEND Nurse Practitioner Acute Care
DX: R77.2 Abnormality of alphafetoprotein (principal)

== ENCOUNTER → 2019-02-21 13:57 | Outpatient (CLI) | payer MEDICAID | END | disposition home or self-care (01) | LOC: D.CT 13:57 | PROVIDERS: ATTEND Nurse Practitioner Acute Care | DX: B18.2 Chronic viral hepatitis C (principal) ==

== ENCOUNTER 2019-06-16 05:11 | Emergency (ER) | payer MEDICAID ==
[~2019-06-16] VITALS: Ht 175.3 cm; Wt 79.5 kg
[2019-06-16 05:17] VITALS: Ht 175.3 cm; Wt 79.5 kg
[2019-06-16 05:48] LABS: BASOPHILS 0.2 % (0-2); EOSINOPHILS 0.3 % (0-7); HEMATOCRIT 45.8 % (42.0-54.0); HEMOGLOBIN 15.4 g/dL (13.5-17.5); IMMATURE GRANULOCYTES 0.4 % (0-5); LYMPHOCYTES 45.3 % (15-50); MCH 27.9 pg (26.0-34.0); MCHC 33.6 g/dL (31.0-37.0); MEAN PLATELET VOLUME 9.5 fL (7.4-10.4); MONOCYTES 3.7 % (2-11); NEUTROPHILS 50.1 % (40-80); PLATELET COUNT 193 10x3/uL (130-400); RBC 5.52 10x6/uL (4.20-6.10); RDW 14.6 % (11.5-14.5)
[2019-06-16 05:55] LABS: UDS - AMPHET POSITIVE QUAL (NEGATIVE); UDS - BARB NEGATIVE QUAL (NEGATIVE); UDS - BENZO NEGATIVE QUAL (NEGATIVE); UDS - COCAINE NEGATIVE QUAL (NEGATIVE); UDS - OPIATE NEGATIVE QUAL (NEGATIVE); UDS - PCP NEGATIVE QUAL (NEGATIVE); UDS - THC POSITIVE QUAL (NEGATIVE)
[2019-06-16 06:01] LABS: APTT 36.6 SECONDS (22.8-39.4); INR 1.17 (0.85-1.17); PROTIME 14.4 SECONDS (11.6-15.0)
[2019-06-16 06:07] LABS: CALC OSMOLALITY 289 mosm/kg (275-300); CARBON DIOXIDE 21.3 mmol/L (21.0-32.0); CHLORIDE - SERUM 103 mmol/L (98-107); CREATININE - SERUM 1.3 mg/dL (0.6-1.3); POTASSIUM - SERUM 3.3 mmol/L (3.5-5.1); SODIUM 144 mmol/L (136-145); UREA NITROGEN 15 mg/dL (7-18); eGFR NON AFRICAN AMERICAN 59 mL/min (90-120)
[2019-06-16 06:08] LABS: GLUCOSE 141 mg/dL (74-106)
[2019-06-16 06:20] LABS: ALBUMIN 4.2 g/dL (3.4-5.0); ALKALINE PHOSPHATASE 79 U/L (46-116); ALT (SGPT) 30 U/L (10-68); BILIRUBIN - TOTAL 0.27 mg/dL (0.2-1.3); CKMB 1.8 U/L (0.0-3.6); CREATINE KINASE 184 UL (21-232); MAGNESIUM - SERUM 2.4 mg/dL (1.8-2.4); THYROID STIMULATING HORMONE 0.69 uIU/mL (0.36-3.74)
[2019-06-16 06:25] LABS: TROPONIN-I < 0.017 ng/mL (0.000-0.060)
[2019-06-16 06:49] LABS: APPEARANCE CLEAR (CLEAR); BACTERIA MANY /hpf (NEGATIVE); BILIRUBIN NEGATIVE (NEGATIVE); COLOR YELLOW (YELLOW); EPITHELIAL CELLS RARE /hpf (0-5); GLUCOSE NEGATIVE (NEGATIVE); KETONE NEGATIVE (NEGATIVE); MUCUS <1+ /lpf (NONE SEEN); NITRITE NEGATIVE (NEGATIVE); PROTEIN NEGATIVE (NEGATIVE); RED CELLS - URINE NONE SEEN /hpf (0-5); UROBILINOGEN NORMAL (NORMAL); WHITE CELLS - URINE 0-5 /hpf (NEGATIVE)
[2019-06-16 11:50] VITALS: BP 109/64
[2019-06-22 20:07] LABS: AEROBE ID Final report (()); RESULT 1 Aerococcus urinae (())
[2019-06-26] MEDS ORDERED: PERCOCET 10-321 EAC1 (08:23)
== END 2019-06-16 07:15 | disposition short-term general hospital (02) ==
LOC: D.ER 05:11
PROVIDERS: Family Medicine
DX: R56.9 Unspecified convulsions (principal); R41.82 Altered mental status, unspecified; Z86.19 Personal history of other infectious and parasitic diseases; I10 Essential (primary) hypertension; M19.90 Unspecified osteoarthritis, unspecified site; M81.0 Age-related osteoporosis without current pathological fracture; M54.9 Dorsalgia, unspecified

== ENCOUNTER 2019-06-27 05:00 | Day surgery (SDC) | payer MEDICAID ==
[2019-06-26 08:54] LABS: HEMATOCRIT 40.8 % (42.0-54.0); HEMOGLOBIN 13.8 g/dL (13.5-17.5); MCH 27.7 pg (26.0-34.0); MCHC 33.8 g/dL (31.0-37.0); MCV 81.9 fL (80.0-100.0); MEAN PLATELET VOLUME 8.9 fL (7.4-10.4); RBC 4.98 10x6/uL (4.20-6.10); RDW 14.7 % (11.5-14.5); WBC 7.9 10x3/uL (4.8-10.8)
[~2019-06-27] VITALS: Ht 175.3 cm; Wt 81.6 kg
[~2019-06-27 05:00] MED LIST changes: +PERCOCET 10-321 EAC1
[2019-06-27] MEDS ORDERED: TRAZODONE HCL150 MG PO (05:33)
[2019-06-27 05:39] VITALS: BP 143/91; Ht 175.3 cm; Wt 81.6 kg
[2019-06-27] MEDS ORDERED: PERCOCET 10-321 EAC1 PO (08:04)
--- NOTE | 2019-06-27 11:21 | OP ---
PATIENT NAME: KANDICE QUINONEZ MEDICAL RECORD: [id number] :57 LOCATION:[facility] ADMISSION DATE: SURGEON: RED JUAREZ DO DATE OF OPERATION: 06/27/2019 PROCEDURE PERFORMED: Right ring finger proximal phalanx excision of osteophyte and PIP joint collateral ligament repair of the radial side. PREOPERATIVE DIAGNOSIS: Large osteophyte from the right ring finger proximal phalanx at proximal interphalangeal joint. POSTOPERATIVE DIAGNOSIS: Large osteophyte from the right ring finger proximal phalanx at proximal interphalangeal joint. INDICATIONS: Mr. Quinonez is a 64-year-old male who has had this growing osteophyte off the PIP joint of his right ring finger. He said it was quite bothersome. He is tired dealing with the pain and wanted something done surgically. I informed him of the risks including damage to digital artery and nerve, continued numbness on that finger and instability at the PIP joint due to the fact of the location of it. He is okay with the risk and as well as aware of the risk of infection, bleeding, stiffness of the finger and need for further surgery and he signed the consent. SURGEON: Red Juarez DO DESCRIPTION OF PROCEDURE: I was assisted by Cortes Gaytan, certified surgical criminal legal assistant to assist with retraction and closing the wound. The patient was taken to the operative suite, given 900 mg clindamycin laid in supine position and given general anesthetic and LMA was placed. The right upper extremity was then prepped and draped in sterile fashion. A time-out was performed. Everyone was in agreeance with the correct site, side, patient and procedure. Following that, the right upper extremity was exsanguinated with an Esmarch and tourniquet was inflated 50 mmHg, it was up for 32 minutes. Incision then began over the osteophyte, it was on the radial side of the PIP joint, it was quite large. Careful dissection was made down to it, had to go through the collateral ligament in order to get to the osteophyte. The osteophyte was then removed with a rongeur and dissected out. The collateral ligament was then repaired [id number] and then a JuggerKnot anchor was placed in the proximal phalanx and a suture was brought up through the collateral and tied back down in horizontal mattress fashion to the anchor. This had a nice repair providing stability of that PIP joint with stress of the radial side. The tourniquet was then let down. The finger was anesthetized with a digital block with 0.25% Marcaine with epinephrine, 2 mL on each side of the digit at the base of the finger. I then closed the skin with a 4-0 Monocryl in a horizontal mattress fashion, it was placed with a soft dressing. He was awakened and taken to recovery in stable condition. BLOOD LOSS: Minimal. COMPLICATIONS: None. TRANSINT:[id number] Voice Confirmation ID: [id number] DOCUMENT ID: [id number] OPERATIVE REPORT [id number] KANDICE QUINONEZ,RED Beebe DO at 1121 CC: [id number] DICTATION DATE: 06/27/19808 CHECKER LOADER: 06/27/19906 [facility] 06/27/19 [facility] [address] [place] [address]
== END 2019-06-27 10:20 | disposition home or self-care (01) ==
LOC: D.OPS 05:00 → D.PAN 07:00 → D.OPS 10:20 → D.PAN 10:50 → D.OPS 13:15 → D.PAN 13:15
PROVIDERS: Anesthesiology; ATTEND Orthopaedic Surgery
DX: M25.741 Osteophyte, right hand (principal)

== ENCOUNTER 2019-10-10 20:17 | Emergency (ER) | payer MEDICAID ==
[~2019-10-10] VITALS: Ht 175.3 cm; Wt 90.7 kg
[~2019-10-10 20:17] MED LIST changes: +PERCOCET 10-321 EAC1 PO; +TRAZODONE HCL150 MG PO
[2019-10-10 20:54] LABS: BASOPHILS 0.2 % (0-2); EOSINOPHILS 0.8 % (0-7); HEMATOCRIT 40.8 % (42.0-54.0); IMMATURE GRANULOCYTES 0.2 % (0-5); LYMPHOCYTES 39.3 % (15-50); MCH 27.3 pg (26.0-34.0); MCHC 34.3 g/dL (31.0-37.0); MCV 79.7 fL (80.0-100.0); MEAN PLATELET VOLUME 8.9 fL (7.4-10.4); MONOCYTES 6.6 % (2-11); NEUTROPHILS 52.9 % (40-80); PLATELET COUNT 157 10x3/uL (130-400); RBC 5.12 10x6/uL (4.20-6.10); RDW 15.2 % (11.5-14.5); WBC 9.5 10x3/uL (4.8-10.8)
[2019-10-10 21:04] LABS: APTT 34.4 SECONDS (22.8-39.4); CALC OSMOLALITY 280 mosm/kg (275-300); CALCIUM 8.6 mg/dL (8.5-10.1); CARBON DIOXIDE 27.3 mmol/L (21.0-32.0); CHLORIDE - SERUM 105 mmol/L (98-107); CREATININE - SERUM 1.1 mg/dL (0.6-1.3); GLUCOSE 115 mg/dL (74-106); INR 1.09 (0.85-1.17); POTASSIUM - SERUM 3.9 mmol/L (3.5-5.1); SODIUM 141 mmol/L (136-145); UREA NITROGEN 9 mg/dL (7-18); eGFR NON AFRICAN AMERICAN 72 mL/min (90-120)
[2019-10-10 21:19] LABS: ALBUMIN 3.9 g/dL (3.4-5.0); ALKALINE PHOSPHATASE 58 U/L (30-120); ALT (SGPT) 23 U/L (10-68); BILIRUBIN - TOTAL 0.33 mg/dL (0.2-1.3); CKMB 1.2 U/L (0.0-3.6); CREATINE KINASE 225 UL (21-232); LIPASE 146 U/L (73-393); MAGNESIUM - SERUM 2.3 mg/dL (1.8-2.4); PROTEIN - SERUM 7.5 g/dL (6.4-8.2); THYROID STIMULATING HORMONE 0.95 uIU/mL (0.36-3.74); TROPONIN-I < 0.017 ng/mL (0.000-0.060)
[2019-10-10 23:29] LABS: BILIRUBIN NEGATIVE (NEGATIVE); GLUCOSE NEGATIVE (NEGATIVE); KETONE NEGATIVE (NEGATIVE); NITRITE NEGATIVE (NEGATIVE); UROBILINOGEN NORMAL (NORMAL)
[2019-10-10 23:39] LABS: UDS - AMPHET POSITIVE QUAL (NEGATIVE); UDS - BARB NEGATIVE QUAL (NEGATIVE); UDS - BENZO NEGATIVE QUAL (NEGATIVE); UDS - COCAINE NEGATIVE QUAL (NEGATIVE); UDS - OPIATE NEGATIVE QUAL (NEGATIVE); UDS - PCP NEGATIVE QUAL (NEGATIVE); UDS - THC POSITIVE QUAL (NEGATIVE)
[2019-10-11 04:41] LABS: BASOPHILS 0.2 % (0-2); EOSINOPHILS 0.4 % (0-7); HEMATOCRIT 39.6 % (42.0-54.0); HEMOGLOBIN 13.8 g/dL (13.5-17.5); IMMATURE GRANULOCYTES 0.1 % (0-5); LYMPHOCYTES 40.8 % (15-50); MCH 27.5 pg (26.0-34.0); MCHC 34.8 g/dL (31.0-37.0); MCV 78.9 fL (80.0-100.0); MEAN PLATELET VOLUME 8.8 fL (7.4-10.4); MONOCYTES 9.6 % (2-11); NEUTROPHILS 48.9 % (40-80); PLATELET COUNT 147 10x3/uL (130-400); RBC 5.02 10x6/uL (4.20-6.10); RDW 15.3 % (11.5-14.5)
[2019-10-11 04:55] LABS: MAGNESIUM - SERUM 2.7 mg/dL (1.8-2.4); PHOSPHOROUS 2.8 mg/dL (2.5-4.9)
[2019-10-11 07:43] LABS: ALKALINE PHOSPHATASE 61 U/L (30-120); ALT (SGPT) 22 U/L (10-68); BILIRUBIN - TOTAL 0.24 mg/dL (0.2-1.3); CALC OSMOLALITY 284 mosm/kg (275-300); CALCIUM 8.3 mg/dL (8.5-10.1); CARBON DIOXIDE 27.6 mmol/L (21.0-32.0); CHLORIDE - SERUM 105 mmol/L (98-107); CKMB 2.6 U/L (0.0-3.6); CREATINE KINASE 453 UL (21-232); CREATININE - SERUM 1.1 mg/dL (0.6-1.3); GLUCOSE 98 mg/dL (74-106); POTASSIUM - SERUM 3.8 mmol/L (3.5-5.1); PROTEIN - SERUM 7.7 g/dL (6.4-8.2); SODIUM 144 mmol/L (136-145); TROPONIN-I < 0.017 ng/mL (0.000-0.060); UREA NITROGEN 7 mg/dL (7-18); eGFR NON AFRICAN AMERICAN 72 mL/min (90-120)
[2019-10-11 12:00] VITALS: BP 142/86
[2019-10-11 12:27] VITALS: Ht 175.3 cm; Wt 90.7 kg
== END 2019-10-11 13:35 | disposition home or self-care (01) ==
LOC: D.ER 20:17
PROVIDERS: Family Medicine; Internal Medicine Nephrology
DX: J18.9 Pneumonia, unspecified organism (principal); R07.9 Chest pain, unspecified; F10.129 Alcohol abuse with intoxication, unspecified; F19.10 Other psychoactive substance abuse, uncomplicated; I10 Essential (primary) hypertension; Z72.0 Tobacco use

== ENCOUNTER → 2019-10-16 16:25 | Outpatient (CLI) | payer MEDICAID ==
[2019-10-11 12:27] VITALS: BMI 26.6
== END | disposition home or self-care (01) ==
LOC: D.RAD 16:25
PROVIDERS: ATTEND Nurse Practitioner
DX: R91.8 Other nonspecific abnormal finding of lung field (principal); M79.10 Myalgia, unspecified site

== ENCOUNTER 2020-02-27 13:22 | Emergency (ER) | payer MEDICAID ==
[~2020-02-27] VITALS: Ht 175.3 cm; Wt 79.5 kg
[2020-02-27 13:24] VITALS: Ht 175.3 cm; Wt 79.5 kg
[2020-02-27] MEDS ORDERED: CYCLOBENZAPRINE10 MG PO (14:39)
[2020-02-27 15:15] VITALS: BP 157/98
== END 2020-02-27 15:16 | disposition home or self-care (01) ==
LOC: D.ER 13:22
DX: M25.552 Pain in left hip (principal); G89.29 Other chronic pain; M25.562 Pain in left knee; V29.3XXA Motorcycle rider (driver) (passenger) injured in unspecified nontraffic accident, initial encounter; Y93.9 Activity, unspecified; Y92.9 Unspecified place or not applicable; I10 Essential (primary) hypertension; Z72.0 Tobacco use

== ENCOUNTER 2020-10-10 14:31 | Emergency (ER) | payer MEDICAID ==
[~2020-10-10] VITALS: Ht 175.3 cm; Wt 79.5 kg
[~2020-10-10 14:31] MED LIST changes: +CYCLOBENZAPRINE10 MG PO
[2020-10-10 14:34] VITALS: Ht 175.3 cm; Wt 79.5 kg
[2020-10-10 15:17] LABS: BASOPHILS 0.2 % (0-2); EOSINOPHILS 0.6 % (0-7); HEMATOCRIT 42.6 % (42.0-54.0); HEMOGLOBIN 14.5 g/dL (13.5-17.5); IMMATURE GRANULOCYTES 0.1 % (0-5); LYMPHOCYTE ABS# 3.84 10x3/uL (1.32-3.57); LYMPHOCYTES 40.6 % (15-50); MCH 26.9 pg (26.0-34.0); MEAN PLATELET VOLUME 8.6 fL (7.4-10.4); NEUTROPHIL ABS# 4.95 10x3/uL (1.78-5.38); NEUTROPHILS 52.5 % (40-80); PLATELET COUNT 163 10x3/uL (130-400); RBC 5.39 10x6/uL (4.20-6.10); RDW 14.9 % (11.5-14.5); WBC 9.5 10x3/uL (4.8-10.8)
[2020-10-10 15:25] LABS: CALC OSMOLALITY 270 mosm/kg (275-300); CALCIUM 8.8 mg/dL (8.5-10.1); CARBON DIOXIDE 29.2 mmol/L (21.0-32.0); CHLORIDE - SERUM 101 mmol/L (98-107); GLUCOSE 114 mg/dL (74-106); POTASSIUM - SERUM 3.6 mmol/L (3.5-5.1); SODIUM 136 mmol/L (136-145); UREA NITROGEN 7 mg/dL (7-18); eGFR NON AFRICAN AMERICAN 80 mL/min (90-120)
[2020-10-10 15:26] LABS: APTT 31.7 SECONDS (22.8-39.4); INR 1.18 (0.85-1.17); PROTIME 13.9 SECONDS (11.6-15.0)
[2020-10-10 15:31] LABS: ALBUMIN 3.9 g/dL (3.4-5.0); ALKALINE PHOSPHATASE 76 U/L (30-120); ALT (SGPT) 21 U/L (10-68); BILIRUBIN - TOTAL 0.24 mg/dL (0.2-1.3); PROTEIN - SERUM 7.5 g/dL (6.4-8.2)
[2020-10-10 17:05] VITALS: BP 146/88
== END 2020-10-10 17:00 | disposition home or self-care (01) ==
LOC: D.ER 14:31
PROVIDERS: Emergency Medicine
DX: S06.0X9A Concussion with loss of consciousness of unspecified duration, initial encounter (principal); S00.81XA Abrasion of other part of head, initial encounter; F10.10 Alcohol abuse, uncomplicated; Y90.9 Presence of alcohol in blood, level not specified; R41.82 Altered mental status, unspecified; I10 Essential (primary) hypertension; W19.XXXA Unspecified fall, initial encounter; Y93.9 Activity, unspecified; Y92.9 Unspecified place or not applicable

== ENCOUNTER → 2020-11-15 10:10 | Outpatient (CLI) | payer MEDICAID ==
[2020-10-10 14:34] VITALS: BMI 25.9
== END | disposition home or self-care (01) ==
LOC: D.CT 10:10
PROVIDERS: ATTEND Clinical Nurse Specialist Family Health
DX: M79.642 Pain in left hand (principal)

== ENCOUNTER 2020-12-17 02:38 | Observation (INO) | payer MEDICAID ==
--- NOTE | 2020-12-16 23:29 | NUR ---
WHEN ASKING HIM WHY HE STOPPED TAKING HIS MEDICATION HE STATED "THEY'RE TRYING TO KILL ME". ASKED WHO WAS TRYING TO KILL HIMM AND HE STATED " THE PEOPLE THAT GAVE ME THOSE MEDICATIONS". ASKED IF THE DOCTORS THAT GAVE HIM THE MEDICATIONS WERE TRYING TO KILL HIM WITH THE MEDICATIONS. REPLIED "YES".
[~2020-12-17] VITALS: Ht 175.3 cm; Wt 75.8 kg
--- NOTE | ~2020-12-17 | CN ---
PATIENT NAME:KANDICE QUINONEZ MEDICAL RECORD: [id number] : 57 LOCATION:[facility] D.2116 ADMIT DATE: 12/17/20 ACCOUNT: [id number] CONSULTING PHYSICIAN: BRYAN RODRIGUEZ MD REFERRING PHYSICIAN: YASEMIN VARGAS MD DATE OF CONSULTATION: 12/17/2020 HISTORY OF PRESENT ILLNESS: A 65-year-old gentleman with a known history of coronary artery disease, has a history of illicit drug use as well as a history of noncompliance in the past with medications. Sometime back, he was recently started in the last few days, however, blood pressure continues to stay markedly elevated, accompanied by chest tightness, pressure, and tingling with exertion right and left arm. He does have a strong family history of coronary artery disease with history of dyslipidemia in the past, ongoing tobacco use. We were asked to see him concerning his cardiovascular status. PAST MEDICAL HISTORY: Includes: 1. History of hypertension. 2. LVH. 3. Mitral valve prolapse. 4. Dyslipidemia. ALLERGIES: HYDROCODONE, PENICILLIN, CODEINE, TORADOL. MEDICATIONS: Include Flexeril 10 mg p.o. t.i.d. p.r.n., amlodipine 10 mg p.o. q. day, metoprolol 25 b.i.d., chlorthalidone 12.5 q. day. SOCIAL HISTORY: He still smokes about a pack a day. Quit drinking approximately 6 months ago by his report, over a year since the last illicit drug use. 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 REVIEW OF SYSTEMS: The patient reports easy bruising but reports no swollen glands. The patient reports no fever, no night sweats, no significant weight gain, no significant weight loss. No significant exercise tolerance. The patient reports no dry eyes, no irritation, no vision change. Patient reports no difficulty hearing and no ear pain. Patient reports no frequent nose bleeds or nose and sinus problems. Patient reports on arm pain on exertion. No shortness of breath while lying down. No history of heart murmur. Patient reports no cough, no wheezing or coughing up blood. Patient reports no abdominal pain, no vomiting. Normal appetite. No diarrhea and not vomiting blood. No nausea and no constipation. Patient reports no incontinence. No difficulty urinating. No hematuria. No increased frequency. Patient reports no muscle aches. No weakness, no arthralgias, no back pain. No swelling of the extremities. Patient reports no abnormal mole, no jaundice, no rashes. Reports no loss of consciousness. No weakness and no numbness. No seizures, dizziness, or headaches. The patient reports no depression, no sleep disturbance, feeling safe in a relationship and no alcohol abuse. Patient reports on fatigue. Reports no runny nose or sinus pressure. No itching, no hives, and no frequent sneezing. PHYSICAL EXAMINATION: GENERAL: Well developed, well nourished, in no acute distress, appears stated age. VITAL SIGNS: 153/103, pulse 91 and regular. HEENT: Normocephalic, atraumatic. CONSULT REPORT [id number] KANDICE QUINONEZ NECK: No JVD or bruits. HEART: Regular. S4 gallop is noted. LUNGS: Good air excursion. ABDOMEN: Soft, nontender. EXTREMITIES: Pulses are 2+. No edema. NEUROLOGIC: Grossly intact. DIAGNOSTIC DATA: EKG shows nonspecific ST-T changes as well as progression. IMPRESSION: Acute coronary syndrome, hypertensive urgency. Given family history, smoking, hypertension and EKG changes, need to exclude occult coronary disease at this point. PLAN: For diagnostic angiography, intervention based on the above. TRANSINT:[id number] Voice Confirmation ID: [id number] DOCUMENT ID: [id number] BRYAN RODRIGUEZ MD CC: [id number] DICTATION DATE: 12/17/20 1524 LEAD MAINTENANCE TECHNICIAN: 12/17/20 2347 ADM IN [facility] [address] [id number]
--- NOTE | ~2020-12-17 | OP ---
PATIENT NAME: KANDICE QUINONEZ MEDICAL RECORD: [id number] :57 LOCATION:D.M2 D.2115 ADMISSION DATE:12/17/20 SURGEON: BRYAN RODRIGUEZ MD DATE OF OPERATION: 12/17/2020 PROCEDURE: Left heart catheterization, selective coronary angiography, aortofemoral runoff, right femoral artery approach. AFRO was performed secondary to difficulty traversing the right iliac system. CATHETERS: A 5-Sami sheath, 5/4 left and right Isaias, 5/4 pig. The procedure was well tolerated. The patient was returned to the cortés. Sheath removed. ExoSeal device was placed on both the right and left. FINDINGS: Left ventriculography in 30-degree CHAO view: Normal wall motion, normal systolic function.. CORONARY ANATOMY: Left main: Left main free of disease. LAD: LAD is free of disease in diagonal system. CIRCUMFLEX: Free of disease in the marginal system. RIGHT CORONARY ARTERY: Dominant artery was free of disease. Next, catheter was pulled in the area of the renal arteries. Aortofemoral runoff was performed. AFRO was performed secondary to difficulty traversing the right iliac system. Abdominal aorta shows no evidence of aneurysm. Some calcification of the aortic wall. No evidence of dissection. Right common and external iliac showed wall disease with no stenosis greater than 50%. The right internal iliac has about 90% stenosis right where we had difficulty crossing with both the Glidewire, J wire, as well as the introducer wire. The right superficial femoral shows mild wall disease with some calcification of the osorio, but no flow restrictive stenosis and 3-vessel runoff of the left iliac system, common internal and external, also some wall disease but no flow obstructive stenosis. The superficial femoral system including common, deep, and superficial show wall disease with calcium deposition in all the arterial osorio but no flow obstructive stenosis with a 3-vessel runoff. IMPRESSION: Normal coronary arteries. Normal coronary anatomy. 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 The patient has mild claudication in retrospect. I suspect this can be watched and managed medically with intervention for worsening symptoms obviously. TRANSINT:[id number] Voice Confirmation ID: [id number] DOCUMENT ID: [id number] BRYAN RODRIGUEZ MD CC: [id number] DICTATION DATE: 12/17/20 1527 MANAGER AUTO: 12/17/20 2316 ADM IN [facility] [address] [facility]
--- NOTE | ~2020-12-17 | HEMODYNAMI ---
PATIENT:KANDICE QUINONEZ MEDICAL RECORD: [id number] : 57 LOCATION:[place] [address] ADMISSION DATE: 12/17/20 Generatedon:115:27 Patient name: KANDICE QUINONEZ Patient #: [id number] SSN: : 1955 Date of study: 12/17/2020 Page: Of Hemodynamic Procedure Report Patient Data Patient Demographics Procedure consent was obtained First Name: KANDICE Gender: Male Last Name: DEVI : 1955 [facility] Initial: J Age: 65 year(s) Patient #: [id number] Race: Black Additional ID: [id number] Contact details Address: [address] [place] [address] [address] State: [place] City: [facility] Zip code: [address] Past Medical History Allergies Allergen Reaction Date Comments Reported Penicillins 02/17/2017 Codeine 02/17/2017 Other allergy 02/17/2017 hydrocodone, ketorolac, tromethamine Other allergy 12/17/2020 PCN, CEFEPINE, CODEINE, HYDROCODONE, TORADOL Admission Admission Data Admission Date: 12/17/2020 Admission Time: 4:27 Room #: .2116 Procedure Procedure Types Cath Procedure Diagnostic Procedure [facility] w/Coronaries Sedation Charges Moderate Sedation 10-24 minutes Peripheral Cath Diagnostic Procedure Abd/Extremity Aortagram Extremities Bilat Lower Extremity Procedure Description Procedure Date Procedure Date: 12/17/2020 Procedure Start Time: 14:57 Procedure End Time: 15:22 Procedure Staff Name Function Gary Durán MD Performing Physician Beatrice Gaffney RT Monitor Melvi Hernandez RT Scrub Aakash Casas RN Nurse Gene Cardenas RN Nurse Procedure Data Cath Procedure Fluoroscopy Diagnostic fluoroscopy Total fluoroscopy Time: 6 time: 6 min min Diagnostic fluoroscopy Total fluoroscopy dose: 413 dose: 413 mGy mGy Contrast Material Contrast Material Type Amount (ml) Isovue 300 113 Entry Location Entry Primary Successful Side Size Upsize Upsize Entry Closure Succes sful Closure Location (Fr) 1 (Fr) 2 (Fr) Remarks Device Remarks Femoral Right 5 Fr Exoseal artery Femoral Left 5 Fr UNABLE Exoseal artery TO CROSS THE RIGHT ILLIAC. Estimated blood loss: 10 ml Diagnostic catheters Device Type Used For End Catheter Placement MULTIPACK 3DRC 5Fr Procedure catheter MULTIPACK JL 4.0 5Fr Procedure catheter MULTIPACK 3DRC 5Fr Procedure catheter MULTIPACK Pigtail 5 Fr Ventriculography catheter Procedure Complications No complications Procedure Medications Medication Administration Route Dosage 0.9% NaCl I.V. 100 ml/hr Oxygen etCO2 Nasal cannula 2 l/min Heparin Flush Bag added to field 2 bags (1000units/500ml NS) Lidocaine 2% added to field 20 Versed I.V. 1 mg Fentanyl I.V. 50 mcg Versed I.V. 1 mg Fentanyl I.V. 50 mcg Lopressor I.V. 5 mg Versed I.V. 1 mg Hemodynamics Rest Heart Rate: 74 (bpm) Pressure Samples Time Site Value (mmHg) Purpose Heart Use Rate(bpm) 15:11 LV 133/14,16 Snapshot 80 Gradients Valve Time Site Site Mean SEP/DFP Peak To Heart Use 1 2 (mmHg) (sec/min) Peak Rate (mmHg) (bpm) Aortic 15:11 LV AO 80 Snapshots Pre Cath Intra NCS Post Cath Vital Signs Time Heart Resp SPO2 etCO2 NIBP (mmHg) Rhythm Pain Sedation Rate (ipm) (%) (mmHg) Status Level (bpm) 14:49:47 83 15 100 17.9 164/106(154) NSR 0 (11) 10(A) , No pain 14:54:09 81 10 100 18.6 160/106(136) NSR 0 (11) 10(A) , No pain 14:58:21 87 13 100 15.7 147/103(126) NSR 0 (11) 9(A) , No pain 15:02:37 82 12 100 35.8 168/100(129) NSR 0 (11) 9(A) , No pain 15:07:15 79 15 100 13.4 154/93(126) NSR 0 (11) 9(A) , No pain 15:12:37 83 16 100 31.4 149/90(116) NSR 0 (11) 9(A) , No pain 15:16:51 80 14 100 24.6 148/99(114) NSR 0 (11) 9(A) , No pain 15:21:03 79 17 100 19.4 136/85(107) NSR 0 (11) 10(A) , No pain Medications Time Medication Route Dose Verified Delivered Reason Notes E ffectiveness by by 14:46:34 Versed I.V. 1 mg Gary Gene for sedation [facility] Cardenas RN, MD 14:46:37 Fentanyl I.V. 50 Gary Gene for sedation mcg [facility] Cardenas RN, MD 14:48:02 0.9% NaCl I.V. 100 Gary Gene used for ml/hr [facility] Cardenas RN procedure 14:48:13 Oxygen etCO2 2 Gary Gene used for Nasal l/min [facility] Julian Cardenas RN procedure cannula 14:48:23 Heparin Flush added 2 Gary Gene used for Bag to bags [facility] Julian Cardenas RN procedure (1000units/500ml field DOYLE NS) 14:48:32 Lidocaine 2% added 20ml Gary Gary for local to vial [facility] John anesthetic field MD DOYLE 14:55:10 Versed I.V. 1 mg Gary Gene for sedation [facility] Julian Cardenas RN, MD 14:55:17 Fentanyl I.V. 50 Gary Gene for sedation mcg [facility] Julian Cardenas RN, MD 15:00:26 Lopressor I.V. 5 [address] [facility] Julian Cardenas RN hypertension 15:07:27 Versed I.V. 1 mg Gary Gene for sedation [facility] Julian Cardenas RN, MD Procedure Log Time Note 14:12:40 Informed consent obtained and on chart 14:12:57 Procedure Status Urgent Heart Cath (IP). 14:13:02 Time tracking: Regular hours (M-F 7:00 - 5:00) 14:13:06 Plan of Care:Hemodynamics will remain stable., Cardiac rhythm will remain stable., Comfort level will be maintained., Respiratory function will remain adequate., Patient/ family verbilizes understanding of procedure., Procedure tolerated without complication., Recovers from procedure without complications.. 14:14:08 H&P Date Dictated: 12/17/2020 Within 30 days and on chart.. 14:15:15 Patient allergic to Other allergyPCN, CEFEPINE, CODEINE, HYDROCODONE, TORADOL 14:27:02 Melvi Hernandez RT(R) sent for patient. Start room use. 14:45:08 Patient received from Med II to CCL 1 Alert and oriented. Tansferred to table in Supine position. 14:45:09 Warm blankets applied, and venancio hugger turned on for patient comfort. 14:45:10 Correct patient and procedure confirmed by team. 14:45:11 ECG and BP/O2 sat monitors applied to patient. 14:45:11 Vital chart was started 14:45:12 Baseline sample Acquired. 14:45:17 Rhythm: sinus rhythm 14:45:18 Full Disclosure recording started 14:45:24 Patient NPO since Midnight. 14:45:29 Is the patient allergic to Iodine/contrast media? No. 14:45:33 Was the patient premedicated? Yes 14:45:34 Is patient on blood thinner?No 14:45:36 Patient diabetic? No. 14:45:54 Snore? Yes 14:45:57 Sleep apnea? Yes 14:46:03 Dentures? No ? 14:46:14 IV patent on arrival in left forearm with 0.9% NaCl at [facility]. 14:46:19 Lab results completed and on chart. 14:46:25 Right groin area was prepped with chlora-prep and draped in sterile fashion 14:46:30 Alarms reviewed by R. N. 14:46:30 Sharps counted by scrub and verified by R.N. 14:46:33 Physician arrived 14:46:33 --------ALL STOP TIME OUT------ 14:46:34 Versed 1 mg I.V. was administered by Gene Cardenas RN; for sedation; Verbal order read back and verified. 14:46:35 Final Timeout: patient, procedure, and site verified with staff and physician. All members of the team are in agreement. 14:46:37 Fentanyl 50 mcg I.V. was administered by Gene Cardenas RN; for sedation; Verbal order read back and verified. 14:46:37 Right groin site verified by team. 14:46:41 Fire Safety Assessment: A--An alcohol-based skin anteseptic being used preoperatively., C--Open oxygen or nitrous oxide is being used., D--An ESU, laser, or fiber-optic light is being used. 14:46:46 Physical assessment completed. ASA score P 3 - A patient with severe systemic disease as per Gary Durán MD. 14:46:54 2) 60-89 Mildly reduced kidney function, and other findings (as for stage 1) point to kidney disease. 14:46:57 Maximum allowable contrast dose (3.7 X eGFR X 0.75)208 ml. 14:47:03 Sedation plan: IV Moderate Sedation Medication:Versed, Fentanyl 14:47:08 Use device set Femoral Dx 14:48:02 0.9% NaCl 100 ml/hr I.V. was administered by Gene Cardenas RN; used for procedure; Verbal order read back and verified. 14:48:13 Oxygen 2 l/min etCO2 Nasal cannula was administered by Gene Cardenas RN; used for procedure; Verbal order read back and verified. 14:48:23 Heparin Flush Bag (1000units/500ml NS) 2 bags added to field was administered by eGne Cardenas RN; used for procedure; Verbal order read back and verified. 14:48:32 Lidocaine 2% 20ml vial added to field was administered by Gary Durán MD; for local anesthetic; Verbal order read back and verified. 14:48:54 ACIST Syringe (58750) opened to sterile field. 14:48:54 Bag Decanter (2002S) opened to sterile field. 14:48:55 Medline Cath Pack ([id number]) opened to sterile field. 14:48:56 ACIST Hand Control (77076) opened to sterile field. 14:48:56 ACIST Manifold (31746) opened to sterile field. 14:48:57 DIAGNOSTIC Multipack 5Fr catheter set (AH6701) opened to sterile field. 14:48:59 SHEATH 5FR Caney (ZYJ231) opened to sterile field. 14:48:59 EMERALD Guide Wire (887-814) opened to sterile field. 14:49:00 Tegaderm 4 x 4 (1626W) opened to sterile field. 14:51:47 Zero performed for pressure channel P1 14:55:10 Versed 1 mg I.V. was administered by Gene Cardenas RN; for sedation; Verbal order read back and verified. 14:55:17 Fentanyl 50 mcg I.V. was administered by Gene Cardenas RN; for sedation; Verbal order read back and verified. 14:57:39 Local anesthetic to right femoral artery with Lidocaine 2% by Gary Durán MD.INITIAL ACCESS ONLY 14:57:52 A 5 Fr sheath was inserted into the Right Femoral artery 14:59:33 A MULTIPACK 3DRC 5Fr catheter was advanced over the wire and used for Procedure. 15:00:26 Lopressor 5 mg I.V. was administered by Gene Cardenas RN; for hypertension; Verbal order read back and verified. 15:00:47 GLIDE WIRE ANGLE 260cm (RS4557) opened to sterile field. 15:05:40 Left groin area was prepped with chlora-prep and draped in sterile fashion 15:05:57 Local anesthetic to left femerol artery with Lidocaine 2% by Gary Durán MD.ADDITIONAL ACCESS 15:06:28 A 5 Fr sheath was inserted into the Left Femoral arteryUNABLE TO CROSS THE RIGHT ILLIAC. 15:07:27 Versed 1 mg I.V. was administered by Gene Cardenas RN; for sedation; Verbal order read back and verified. 15:07:27 A MULTIPACK JL 4.0 5Fr catheter was advanced over the wire and used for Procedure. 15:07:56 LCA angiography performed. 15:09:16 Catheter removed. 15:09:29 A MULTIPACK 3DRC 5Fr catheter was advanced over the wire and used for Procedure. 15:09:39 RCA angiography performed. 15:10:47 Catheter removed. 15:10:58 A MULTIPACK Pigtail 5 Fr catheter was advanced over the wire and used for Ventriculography. 15:11:02 LV angiography performed. 15:11:05 Zero performed for pressure channel P1 15:12:32 Abdominal angiogram w/ runoff was performed. 15:13:13 Right leg runoff performed. 15:13:14 Left leg runoff performed. 15:13:57 Catheter removed. 15:14:09 EXOSEAL 5Fr (EX500) opened to sterile field. 15:14:18 EXOSEAL 5Fr (EX500) opened to sterile field. 15:14:44 Sheath removed intact; hemostasis achieved with Exoseal to the Left Femoral artery. 15:14:52 Sheath removed intact; hemostasis achieved with Exoseal to the Right Femoral artery. 15:15:35 Procedure ended.(Physican Out) 15:16:10 Fluoroscopy time 06.00 minutes. 15:16:14 Fluoroscopy dose: 413 mGy 15:16:14 Flurop Dose total: 413 15:16:19 Dose Area Product 82140 mGy/cm. 15:17:28 Contrast amount:Isovue 300 113ml. 15:17:31 Maximum allowable dose exceeded? No. 15:17:33 Insertion/operative site no bleeding no hematoma. 15:17:39 Post-op/insertion site Right Femoral artery dressed using a 4 x 4 and Tegaderm. 15:17:45 Post-op/insertion site Left Femoral artery dressed using a 4 x 4 and Tegaderm. 15:17:54 Post right femoral artery:stable 15:17:58 Post left femerol artery:stable 15:18:00 Post Procedure Pulses reassessed and unchanged 15:18:06 Post-procedure physical assessment completed. ASA score P 3 - A patient with severe systemic disease as per Gary Durán MD. 15:18:10 Post procedure rhythm: unchanged. 15:18:13 Estimated blood loss: 10 ml 15:18:15 Post procedure instruction explained to patient.Patient verbalizes understanding. 15:20:51 Procedure type changed to Cath procedure, Diagnostic procedure, LHC, LHC w/Coronaries, Sedation Charges, Moderate Sedation 10-24 minutes, Peripheral Cath Diagnostic Procedure, Abd/Extremity, Aortagram, Extremities, Bilat Lower Extremity 15:20:54 Procedure and supply charges have been captured, reviewed, submitted and are correct. 15:22:21 Procedure Complication : No complications 15:22:24 Vital chart was stopped 15:22:29 [facility] Findings: mild to moderate CAD (<70%) 15:22:36 AFRO Findings: PVD: MD will discuss options w/ pt 15:22:37 See physician's report for complete and final results. 15:22:41 Report given to [facility]. 15:22:46 Patient transfered to [facility] with Bed. 15:22:49 Procedure ended. 15:22:49 Full Disclosure recording stopped 15:22:53 End room use (Document Last) 15:25:13 End room use (Document Last) 15:27:20 End room use (Document Last) Device Usage Item Name Manufacture Quantity Catalog Hospital Part Current Minimal L ot# / Number Charge Number Stock Stock Serial# Code ACIST Acist 1 13107 118381 380247 215901 20 YourPOV.TV (47702) PulpWorks Inc Bag Microtek 1 2001S 321670 04776 014679 5 Decanter Medical Inc. (2001S) Medline Medline 1 [id number] 395166 46517 314349 5 Cath Pack ([id number]) ACIST Hand Acist 1 60757 193670 829473 126068 5 Control Medical (60438) Systems Inc ACIST Acist 1 03179 750035 849028 896276 5 Manifold Medical (81836) Systems Inc DIAGNOSTIC Cardinal 1 FS5157 305465 99599 516860 30 Multipack Health 5Fr catheter set (WF5152) SHEATH 5FR Terumo 1 CEA006 955692 813957 737160 5 Caney (KAT886) EMERALD Cardinal 1 502-455 677227 906245 411788 5 Guide Wire Health (502-455) Tegaderm 4 3M 1 1626W 034728 840011 579433 5 x 4 (1626W) MULTIPACK Cardinal 1 989139 5 3DRC 5Fr Health catheter GLIDE WIRE Terumo 1 VZ6466 102861 820105 485314 5 ANGLE 260cm (DW1496) MULTIPACK Cardinal 1 031514 5 JL 4.0 5Fr Health catheter MULTIPACK Cardinal 1 011791 5 Pigtail 5 Health Fr catheter EXOSEAL 5Fr Cardinal 2 EX500 629670 492940 097965 10 (EX500) Health Signature Audit [place] Stage Time Signature Unsigned Intra-Procedure 12/17/2020 Beatrice Gaffney 3:25:14 PM RT(R) Intra-Procedure 12/17/2020 Gene Cardenas RN 3:27:20 PM Intra-Procedure 12/17/2020 Gary Avila 3:27:40 PM Julian DOYLE [place] [id number] [place] [address]
[2020-12-17 03:11] LABS: BASOPHILS 0.5 % (0-2); EOSINOPHILS 1.1 % (0-7); HEMATOCRIT 41.2 % (42.0-54.0); HEMOGLOBIN 13.8 g/dL (13.5-17.5); LYMPHOCYTES 47.2 % (15-50); MCH 26.3 pg (26.0-34.0); MCHC 33.5 g/dL (31.0-37.0); MCV 78.5 fL (80.0-100.0); MEAN PLATELET VOLUME 7.3 fL (7.4-10.4); MONOCYTES 8.8 % (2-11); NEUTROPHILS 42.4 % (40-80); PLATELET COUNT 220 10x3/uL (130-400); RBC 5.24 10x6/uL (4.20-6.10); RDW 15.7 % (11.5-14.5); WBC 11.2 10x3/uL (4.8-10.8)
[2020-12-17 03:21] LABS: CALC OSMOLALITY 280 mosm/kg (275-300); CALCIUM 9.5 mg/dL (8.5-10.1); CARBON DIOXIDE 27.9 mmol/L (21.0-32.0); CHLORIDE - SERUM 103 mmol/L (98-107); CREATININE - SERUM 1.3 mg/dL (0.6-1.3); GLUCOSE 77 mg/dL (74-106); SODIUM 141 mmol/L (136-145); UREA NITROGEN 16 mg/dL (7-18); eGFR NON AFRICAN AMERICAN 59 mL/min (90-120)
[2020-12-17 03:35] LABS: ALBUMIN 4.1 g/dL (3.4-5.0); ALKALINE PHOSPHATASE 83 U/L (30-120); ALT (SGPT) 21 U/L (10-68); BILIRUBIN - TOTAL 0.61 mg/dL (0.2-1.3); CKMB 2.4 U/L (0.0-3.6); CREATINE KINASE 243 UL (21-232); PROTEIN - SERUM 8.1 g/dL (6.4-8.2)
[2020-12-17 03:36] LABS: TROPONIN-I < 0.017 ng/mL (0.000-0.060)
[2020-12-17 06:18] VITALS: BP 153/103; BMI 24.7
--- NOTE | 2020-12-17 06:33 | NUR ---
RECIEVED REPORT FROM NAVNEET RN. ARRIVED TO FLOOR ON STRETCHER. ALERT AND ORIENTED X4. UP AD JANETTE. STATED HE WALKED ALL THE WAY FROM [place] AND EVERYTHING HE OWNS IS IN THE TRASH NEXT TO HIM. REFUSED TO PUT IN SAFE. ASSESSMENT COMPLETED.
[2020-12-17 07:20] LABS: APTT 33.6 SECONDS (22.8-39.4); INR 1.22 (0.85-1.17); PROTIME 14.3 SECONDS (11.6-15.0)
[2020-12-17 07:21] LABS: D-DIMER-QUANTITATIVE 0.57 ug/mLFEU (0.20-0.54)
[2020-12-17 09:25] LABS: MAGNESIUM - SERUM 2.3 mg/dL (1.8-2.4); PRO BNP 66 pg/mL (0-125)
[2020-12-17 09:29] LABS: TROPONIN-I < 0.017 ng/mL (0.000-0.060)
[2020-12-17 09:30] LABS: BASOPHILS 0.8 % (0-2); EOSINOPHILS 1.6 % (0-7); HEMATOCRIT 40.2 % (42.0-54.0); HEMOGLOBIN 13.7 g/dL (13.5-17.5); LYMPHOCYTES 38.1 % (15-50); MCH 26.6 pg (26.0-34.0); MCV 78.2 fL (80.0-100.0); MEAN PLATELET VOLUME 7.7 fL (7.4-10.4); MONOCYTES 9.3 % (2-11); NEUTROPHILS 50.2 % (40-80); PLATELET COUNT 209 10x3/uL (130-400); RBC 5.14 10x6/uL (4.20-6.10); RDW 15.5 % (11.5-14.5)
[2020-12-17 09:31] LABS: WBC 7.5 10x3/uL (4.8-10.8)
[2020-12-17 09:32] LABS: CHOL - HDL RATIO 2.4 ratio (2.3-4.9); LDL-HDL RATIO 1.2 ratio (1.5-3.5)
--- NOTE | 2020-12-17 13:57 | NUR ---
ALERT AND ORIENTED X4. SITTING UP IN BED. NG TUBE TUBING CHANGED OUT. REPORTS DISCOMFORT. CHECK NG TUBE PLACEMENT. 0 ASPIRATED. UNABLE TO HEAR AIR FLOW. XRAY ORDERED TO CHECK PLACEMENT. CONTROLLED AFIB 96 ON TELEMETRY. CARDIZEM INFUSING ORDERED. CONTINUE PLAN OF CARE AND SAFETY PRECAUTIONS.
--- NOTE | 2020-12-17 15:50 | NUR ---
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 ALERT AND ORIENTED X4. BILATERAL GROIN DRESSINGS C/D/I. FREE FROM BLEEDING. FREE FROM HEMATOMA. BP-150/90, O2-98% RA, HR-77 SINUS RHYTHM, R-14. PULSE PALPABLE BILATERALLY. PATIENT ELEVATED HOB. ENCOURAGE NOT TO MOVE BED DUE TO INCREASE RISK FOR BLEEDING. PATIENT STATES, "I CAN'T KEEP IT FLAT OR ELSE I CAN'T BREATH. RECHECK SITES. SITES REMAIN C/D/I. CONTINUE PLAN OF CARE AND SAFETY PRECAUTIONS.
--- NOTE | 2020-12-17 16:00 | MORECARE ---
CASE MANAGEMENT DISCHARGE SUMMARY PATIENT: KANDICE QUINONEZ UNIT: [id number] ADM DATE: 12/17/20 AGE: 65 : 56 SEX: M [facility] AUTHOR: SUKUMAR MORRIS PHYSICIAN: REFERRING PHYSICIAN: YASEMIN VARGAS MD DATE OF SERVICE: 12/17/20 Case Management Discharge Planning Summary DCP REVIEW SUMMARY ANTICIPATED D/C DATE: EXPECTED LOS : CASE STATUS: DCP Initiated INITIAL REVIEW: 12/17/2020 INITIAL REVIEWER: Lynne Talamantes FINAL DISCHARGE DISPOSITION: : FINAL REVIEWER: FINAL REVIEW DATE: DCP Focus Questions & Answers DCP Screen QUESTION: ANSWER High Risk Factors: : Poor social support DCP Evaluation QUESTION: ANSWER Patient's ability to cope with chronic illness : d. No chronic illness Would patient like to participate in any Care Coordination programs (if applicable): : Not applicable Mental health screen: : No mental health history DCP Re-evaluation QUESTION: ANSWER Would patient like to participate in any Care Coordination programs (if applicable): : Not applicable PATIENT: KANDICE QUINONEZ ENCOUNTER: [id number] MEDICAL RECORD#: [id number] ADMISSION DATE: 12/17/2020 DISCHARGE DATE: ATTENDING MD: YASEMIN VELASCO : AGE: 65 MARITAL STATUS: S DC PLAN ID: [id number] FACILITY: [facility] PRINTED ON: 12/17/20 16:00 CT All edits/amendments must be made on the electronic document DICTATION DATE: 12/17/20 1600 TWISTER HAND: SHAYLA 12/17/20 1600 RPT#: [id number] DC DATE: STATUS: ADM IN [facility] [address] [place] [address] END OF REPORT
--- NOTE | 2020-12-17 16:12 | MORECARE ---
CASE MANAGEMENT DISCHARGE SUMMARY PATIENT: KANDICE QUINONEZ UNIT: [id number] ADM DATE: 12/17/20 AGE: 65 : 56 SEX: M ROOM/BED: D.2116 AUTHOR: SUKUMAR MORRIS PHYSICIAN: REFERRING PHYSICIAN: YASEMIN VARGAS MD DATE OF SERVICE: 12/17/20 Case Management Discharge Planning Summary DCP REVIEW SUMMARY ANTICIPATED D/C DATE: EXPECTED LOS : CASE STATUS: DCP Initiated INITIAL REVIEW: 12/17/2020 INITIAL REVIEWER: Lynne Talamantes FINAL DISCHARGE DISPOSITION: : FINAL REVIEWER: FINAL REVIEW DATE: DCP Focus Questions & Answers DCP Screen QUESTION: ANSWER High Risk Factors: : Poor social support DCP Evaluation QUESTION: ANSWER Patient's ability to cope with chronic illness : a. Adequate (0-3 ED visits in 6 mos., adequate financial resources, attends scheduled appts.) Patient and/or caregiver agree upon recommended discharge plan? : Yes Patient's current cognitive status: : *Oriented to person, place, situation, time and present Does the patient have the ability to pay for or attain post discharge needs / services? : Yes Functional screen assessment: : Can meet basic needs but may require referral for resources Family / Caregiver's ability to cope with chronic illness: : a. Adequate (ability to meet patient's medical needs, ensures patient attends medical appts.) Physical Status: : Independent with ADL's Equipment needed for post hospitalization: : None Is there a likelihood that the patient will require additional services to return to the preadmission environment? : No Living Arrangements: : Homeless Partial Dependence, assistance required for: : Ambulation / Mobility Results of this evaluation have been discussed with: : Patient Patient with capacity for self-care or can be cared for in same environment as prior to hospitalization? : Yes Baseline cognitive status: : *Oriented to person, place, situation, time and present Physical environment modification needed / anticipated for discharge: : No Medication Management: : Patient states can read and understand medication labels Medication Management: : Patient states they do have transportation to berry picker medications Medication Management: : Patient states can afford medications Planned post hospital services available for patient? : N/A Pharmacy name(s): : [facility] Planned post hospital services covered by insurance plan? : N/A Does Patient have transportation to get home and to follow-up medical appointments when discharged from the hospital? : Yes Would patient like to participate in any Care Coordination programs (if applicable): : Not applicable Comments: : PT HAS HANDICAP BUS PASS Does the patient have electricity at home? : No Comments (electricity): : PT IS HOMELESS Does the patient have running water in their house? : No Comment (running water): : HOMELESS Equipment in use: : Walker - Rollator Mental health screen: : No mental health history Psychosocial status: : Independent adult (18-64) Psychosocial status: : Difficult family dynamics Psychosocial status: : Adult with physical limitations Abuse/Neglect: : None Resources / Services in place: : None DCP Re-evaluation QUESTION: ANSWER Would patient like to participate in any Care Coordination programs (if applicable): : Not applicable PATIENT: KANDICE QUINONEZ ENCOUNTER: [id number] MEDICAL RECORD#: [id number] ADMISSION DATE: 12/17/2020 DISCHARGE DATE: ATTENDING MD: YASEMIN VELASCO : AGE: 65 MARITAL STATUS: S DC PLAN ID: [id number] FACILITY: [facility] PRINTED ON: 12/17/20 16:12 CT All edits/amendments must be made on the electronic document DICTATION DATE: 12/17/201611 HELMET HAT PUNCHER: SHAYLA 12/17/201611 RPT#: [id number] DC DATE: STATUS: ADM IN [facility] [address] [place] [address] END OF REPORT
--- NOTE | 2020-12-17 16:34 | MORECARE ---
CASE MANAGEMENT DISCHARGE SUMMARY PATIENT: KANDICE QUINONEZ UNIT: [id number] ADM DATE: 12/17/20 AGE: 65 : 56 SEX: M ROOM/BED: D.2116 AUTHOR: ARTURO,DOC PHYSICIAN: REFERRING PHYSICIAN: YASEMIN VARGAS MD DATE OF SERVICE: 12/17/20 Case Management Discharge Planning Summary COMMENTS ENTERED DATE: 12/17/20 16:10 CT COMMENT TYPE: Discharge Planning REVIEWER: Lynne Talamantse CM MET WITH PATIENT TO COMPLETE DCP AND DISCUSS DISCHARGE LOCATION. PT IS REPORTEDLY HOMELESS. UPON ENTRY PT IS POLITE AND VERY TALKATIVE. CM PRESENTED WITH Isabella Oliver RESOURCE HANDOUTS AND INFORMATION ON SHELTERS, FOOD, AND TRANSPORTATION. DURING ASSESSMENT CM WAS INFORMED THAT PATIENT HAS MULTIPLE RESOURCES IN [facility] AT THIS TIME. CM ASKED IF PATIENT HAD A PLAN FOR DISCHARGE HE RESPONDED " I HAVE PRETTY MUCH EXHAUSTED MY RESOURCE". DISCUSSED MULTIPLE SHELTERS AND LOW INCOME HOUSING FACILITIES TO WHICH PATIENT WAS ALREADY AWARE OF OR DID NOT PREFER. CM DID LEARN THAT PATIENT HAS A HANDICAP BUS PASS, AND SCAT SERVICE. HE ALSO STATES THAT HE IS GETTING ASSISTANCE WITH [facility] WITH [employer], AND ALSO [facility] WITH "[facility]". PT DENIES HAVING ANY FAMILY ASSISTANCE, DOES RECIEVE BENEFITS THAT ARE DEPOSITED INTO A BANK ACCOUNT. PT DOES NOT SEEM CONCERNED ABOUT DISCHARGE AND LACK OF CORRECTION. PT TOOK RESOURCE INFORMATION AND CONSIDER CONTACTING ONE OF THE SHELTERS. NEEDS FOLLOW UP FOR PLAN. DCP REVIEW SUMMARY ANTICIPATED D/C DATE: EXPECTED LOS : CASE STATUS: DCP Initiated INITIAL REVIEW: 12/17/2020 INITIAL REVIEWER: Lynne Talamantes FINAL DISCHARGE DISPOSITION: : FINAL REVIEWER: FINAL REVIEW DATE: DCP Focus Questions & Answers DCP Screen QUESTION: ANSWER High Risk Factors: : Poor social support DCP Evaluation QUESTION: ANSWER Patient's ability to cope with chronic illness : a. Adequate (0-3 ED visits in 6 mos., adequate financial resources, attends scheduled appts.) Patient and/or caregiver agree upon recommended discharge plan? : Yes Patient's current cognitive status: : *Oriented to person, place, situation, time and present Does the patient have the ability to pay for or attain post discharge needs / services? : Yes Functional screen assessment: : Can meet basic needs but may require referral for resources Family / Caregiver's ability to cope with chronic illness: : a. Adequate (ability to meet patient's medical needs, ensures patient attends medical appts.) Physical Status: : Independent with ADL's Equipment needed for post hospitalization: : None Is there a likelihood that the patient will require additional services to return to the preadmission environment? : No Living Arrangements: : Homeless Partial Dependence, assistance required for: : Ambulation / Mobility Results of this evaluation have been discussed with: : Patient Patient with capacity for self-care or can be cared for in same environment as prior to hospitalization? : Yes Baseline cognitive status: : *Oriented to person, place, situation, time and present Physical environment modification needed / anticipated for discharge: : No Medication Management: : Patient states can read and understand medication labels Medication Management: : Patient states they do have transportation to tile picker medications Medication Management: : Patient states can afford medications Planned post hospital services available for patient? : N/A Pharmacy name(s): : [facility] Planned post hospital services covered by insurance plan? : N/A Does Patient have transportation to get home and to follow-up medical appointments when discharged from the hospital? : Yes Would patient like to participate in any Care Coordination programs (if applicable): : Not applicable Comments: : PT HAS HANDICAP BUS PASS Does the patient have electricity at home? : No Comments (electricity): : PT IS HOMELESS Does the patient have running water in their house? : No Comment (running water): : HOMELESS Equipment in use: : Walker - Rollator Mental health screen: : No mental health history Psychosocial status: : Independent adult (18-64) Psychosocial status: : Difficult family dynamics Psychosocial status: : Adult with physical limitations Abuse/Neglect: : None Resources / Services in place: : None DCP Re-evaluation QUESTION: ANSWER Would patient like to participate in any Care Coordination programs (if applicable): : Not applicable PATIENT: KANDICE QUINONEZ ENCOUNTER: [id number] MEDICAL RECORD#: [id number] ADMISSION DATE: 12/17/2020 DISCHARGE DATE: ATTENDING MD: YASEMIN VELASCO : AGE: 65 MARITAL STATUS: S DC PLAN ID: [id number] FACILITY: [facility] PRINTED ON: 12/17/20 16:34 CT All edits/amendments must be made on the electronic document DICTATION DATE: 12/17/201633 PROMOTIONS ASSISTANT: DM 12/17/20 163 RPT#: [id number] DC DATE: STATUS: ADM IN [facility] [address] [place] [address] END OF REPORT
--- NOTE | 2020-12-17 18:50 | NUR ---
RECIEVED LAYING IN BED YELLING OUT (HEY) OVER AND OVER. WENT TO ROOM AND HE WANTED HIS DOOR TO STAY CLOSED. ALERT AND ORIENTED X4. UP AD JANETTE TO B/R. DOOR CLOSED AND SIGN PLACED ON DOOR TO PLEASE KEEP DOOR CLOSED. DENIES ANY PTHER NEEDS.
[2020-12-17 21:00] VITALS: BP 127/75
[2020-12-18] VITALS: BP 142/83
[2020-12-18 04:00] VITALS: BP 143/90
--- NOTE | 2020-12-18 05:35 | NUR ---
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 TOOK ACETAMENOPHEN IN WHEN GIVING AM MEDICATIONS. REFUSED ACETAMENOPHEN AND PROTONIX. STATED " MY DOCTOR GIVES ME PERCOCET ". EXPLAINED HE PROBABLY NEEDS TO VISIT HIS DOCTOR WHEN HE LEAVES THE HOPSPITAL. WILL REPORT TO [facility].
[2020-12-18 06:27] LABS: BASOPHILS 0.5 % (0-2); EOSINOPHILS 2.4 % (0-7); HEMATOCRIT 42.9 % (42.0-54.0); HEMOGLOBIN 14.1 g/dL (13.5-17.5); LYMPHOCYTES 36.9 % (15-50); MCH 26.3 pg (26.0-34.0); MCHC 32.8 g/dL (31.0-37.0); MEAN PLATELET VOLUME 7.6 fL (7.4-10.4); NEUTROPHILS 52.2 % (40-80); PLATELET COUNT 220 10x3/uL (130-400); RBC 5.36 10x6/uL (4.20-6.10); RDW 15.7 % (11.5-14.5); WBC 7.7 10x3/uL (4.8-10.8)
[2020-12-18 06:42] LABS: ALBUMIN 3.6 g/dL (3.4-5.0); BILIRUBIN - TOTAL 0.33 mg/dL (0.2-1.3); CARBON DIOXIDE 26.9 mmol/L (21.0-32.0); CREATININE - SERUM 1.2 mg/dL (0.6-1.3); MAGNESIUM - SERUM 2.4 mg/dL (1.8-2.4); PHOSPHOROUS 3.6 mg/dL (2.5-4.9); POTASSIUM - SERUM 3.9 mmol/L (3.5-5.1); PROTEIN - SERUM 7.3 g/dL (6.4-8.2)
--- NOTE | 2020-12-18 07:15 | NUR ---
RECEIVE SHIFT REPORT. WALKING AROUND ROOM. DENIES ANY NEEDS AT THIS TIME. WILL CONTINUE POC AND SAFETY PRECAUTIONS.
[2020-12-18 08:00] VITALS: BP 158/97
[2020-12-18 13:09] VITALS: Ht 175.3 cm; Wt 75.8 kg
--- NOTE | 2020-12-18 15:59 | NUR ---
PATIENT DID NOT WANT TO WAIT FOR TAXI STATES HE IS LEAVING. WALKED SELF OUT.
--- NOTE | 2020-12-18 16:08 | MORECARE ---
CASE MANAGEMENT DISCHARGE SUMMARY PATIENT: KANDICE QUINONEZ UNIT: [id number] ADM DATE: 12/17/20 AGE: 65 : 57 SEX: M ROOM/BED: D.2116 AUTHOR: ARTURO,DOC PHYSICIAN: REFERRING PHYSICIAN: YASEMIN VARGAS MD DATE OF SERVICE: 12/18/20 Case Management Discharge Planning Summary COMMENTS ENTERED DATE: 12/17/20 16:10 CT COMMENT TYPE: Discharge Planning REVIEWER: Lynne Talamantes CM MET WITH PATIENT TO COMPLETE DCP AND DISCUSS DISCHARGE LOCATION. PT IS REPORTEDLY HOMELESS. UPON ENTRY PT IS POLITE AND VERY TALKATIVE. CM PRESENTED WITH [employer] HANDOUTS AND INFORMATION ON SHELTERS, FOOD, AND TRANSPORTATION. DURING ASSESSMENT CM WAS INFORMED THAT PATIENT HAS MULTIPLE RESOURCES IN [facility] AT THIS TIME. CM ASKED IF PATIENT HAD A PLAN FOR DISCHARGE HE RESPONDED " I HAVE PRETTY MUCH EXHAUSTED MY RESOURCE". DISCUSSED MULTIPLE SHELTERS AND LOW INCOME HOUSING FACILITIES TO WHICH PATIENT WAS ALREADY AWARE OF OR DID NOT PREFER. CM DID LEARN THAT PATIENT HAS A HANDICAP BUS PASS, AND SCAT SERVICE. HE ALSO STATES THAT HE IS GETTING ASSISTANCE WITH [facility] WITH ANATOLIY BENDER, AND ALSO [facility] [place] WITH "CHR[facility]". PT DENIES HAVING ANY FAMILY ASSISTANCE, DOES RECIEVE BENEFITS THAT ARE DEPOSITED INTO A BANK ACCOUNT. PT DOES NOT SEEM CONCERNED ABOUT DISCHARGE AND LACK OF RETIREMENT. PT TOOK RESOURCE INFORMATION AND CONSIDER CONTACTING ONE OF THE SHELTERS. NEEDS FOLLOW UP FOR PLAN. DCP REVIEW SUMMARY ANTICIPATED D/C DATE: EXPECTED LOS : CASE STATUS: DCP Initiated INITIAL REVIEW: 12/17/2020 INITIAL REVIEWER: Lynne Talamantes FINAL DISCHARGE DISPOSITION: : FINAL REVIEWER: FINAL REVIEW DATE: DCP Focus Questions & Answers DCP Screen QUESTION: ANSWER High Risk Factors: : Poor social support DCP Evaluation QUESTION: ANSWER Patient's ability to cope with chronic illness : a. Adequate (0-3 ED visits in 6 mos., adequate financial resources, attends scheduled appts.) Patient and/or caregiver agree upon recommended discharge plan? : Yes Patient's current cognitive status: : *Oriented to person, place, situation, time and present Does the patient have the ability to pay for or attain post discharge needs / services? : Yes Functional screen assessment: : Can meet basic needs but may require referral for resources Family / Caregiver's ability to cope with chronic illness: : a. Adequate (ability to meet patient's medical needs, ensures patient attends medical appts.) Physical Status: : Independent with ADL's Equipment needed for post hospitalization: : None Is there a likelihood that the patient will require additional services to return to the preadmission environment? : No Living Arrangements: : Homeless Partial Dependence, assistance required for: : Ambulation / Mobility Results of this evaluation have been discussed with: : Patient Patient with capacity for self-care or can be cared for in same environment as prior to hospitalization? 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 : N/A Pharmacy name(s): : [facility] Planned post hospital services covered by insurance plan? : N/A Does Patient have transportation to get home and to follow-up medical appointments when discharged from the hospital? : Yes Would patient like to participate in any Care Coordination programs (if applicable): : Not applicable Comments: : PT HAS HANDICAP BUS PASS Does the patient have electricity at home? : No Comments (electricity): : PT IS HOMELESS Does the patient have running water in their house? : No Comment (running water): : HOMELESS Equipment in use: : Walker - Rollator Mental health screen: : No mental health history Psychosocial status: : Independent adult (18-64) Psychosocial status: : Difficult family dynamics Psychosocial status: : Adult with physical limitations Abuse/Neglect: : None Resources / Services in place: : None DCP Re-evaluation QUESTION: ANSWER Would patient like to participate in any Care Coordination programs (if applicable): : Not applicable PATIENT: KANDICE QUINONEZ ENCOUNTER: [id number] MEDICAL RECORD#: [id number] ADMISSION DATE: 12/17/2020 DISCHARGE DATE: 12/18/2020 ATTENDING MD: YASEMIN VELASCO : AGE: 65 MARITAL STATUS: S DC PLAN ID: [id number] FACILITY: [facility] PRINTED ON: 12/18/20 16:08 CT All edits/amendments must be made on the electronic document DICTATION DATE: 12/18/201607 TITLE I MATH TUTOR: SHAYLA 12/18/20 160 RPT#: [id number] DC DATE:12/18/20 STATUS: DIS IN [facility] [address] [place] [address] END OF REPORT
--- NOTE | 2020-12-19 19:26 | MORECARE ---
CASE MANAGEMENT DISCHARGE SUMMARY PATIENT: KANDICE QUINONEZ UNIT: [id number] ADM DATE: 12/17/20 AGE: 65 : 57 SEX: M ROOM/BED: D.2116 AUTHOR: ARTURO,DOC PHYSICIAN: REFERRING PHYSICIAN: YASEMIN VARGAS MD DATE OF SERVICE: 12/19/20 Case Management Discharge Planning Summary COMMENTS ENTERED DATE: 12/17/20 16:10 CT COMMENT TYPE: Discharge Planning REVIEWER: Lynne Talamantes CM MET WITH PATIENT TO COMPLETE DCP AND DISCUSS DISCHARGE LOCATION. PT IS REPORTEDLY HOMELESS. UPON ENTRY PT IS POLITE AND VERY TALKATIVE. CM PRESENTED WITH [employer] [facility] AND INFORMATION ON SHELTERS, FOOD, AND TRANSPORTATION. DURING ASSESSMENT CM WAS INFORMED THAT PATIENT HAS MULTIPLE RESOURCES IN [facility] AT THIS TIME. CM ASKED IF PATIENT HAD A PLAN FOR DISCHARGE HE RESPONDED " I HAVE PRETTY MUCH EXHAUSTED MY RESOURCE". DISCUSSED MULTIPLE SHELTERS AND LOW INCOME HOUSING FACILITIES TO WHICH PATIENT WAS ALREADY AWARE OF OR DID NOT PREFER. CM DID LEARN THAT PATIENT HAS A HANDICAP BUS PASS, AND SCAT SERVICE. HE ALSO STATES THAT HE IS GETTING ASSISTANCE WITH [facility]ITY [facility] WITH [employer], AND ALSO [facility] WITH "[facility]". PT DENIES HAVING ANY FAMILY ASSISTANCE, DOES RECIEVE BENEFITS THAT ARE DEPOSITED INTO A BANK ACCOUNT. PT DOES NOT SEEM CONCERNED ABOUT DISCHARGE AND LACK OF [facility]. PT TOOK RESOURCE INFORMATION AND CONSIDER CONTACTING ONE OF THE SHELTERS. NEEDS FOLLOW UP FOR PLAN. DCP REVIEW SUMMARY ANTICIPATED D/C DATE: EXPECTED LOS : CASE STATUS: DCP Initiated INITIAL REVIEW: 12/17/2020 INITIAL REVIEWER: Lynne Talamantes FINAL DISCHARGE DISPOSITION: : FINAL REVIEWER: FINAL REVIEW DATE: DCP Focus Questions & Answers DCP Screen QUESTION: ANSWER High Risk Factors: : Poor social support DCP Evaluation QUESTION: ANSWER Patient's ability to cope with chronic illness : a. Adequate (0-3 ED visits in 6 mos., adequate financial resources, attends scheduled appts.) Patient and/or caregiver agree upon recommended discharge plan? : Yes Patient's current cognitive status: : *Oriented to person, place, situation, time and present Does the patient have the ability to pay for or attain post discharge needs / services? : Yes Functional screen assessment: : Can meet basic needs but may require referral for resources Family / Caregiver's ability to cope with chronic illness: : a. Adequate (ability to meet patient's medical needs, ensures patient attends medical appts.) Physical Status: : Independent with ADL's Equipment needed for post hospitalization: : None Is there a likelihood that the patient will require additional services to return to the preadmission environment? : No Living Arrangements: : Homeless Partial Dependence, assistance required for: : Ambulation / Mobility Results of this evaluation have been discussed with: : Patient Patient with capacity for self-care or can be cared for in same environment as prior to hospitalization? : Yes Baseline cognitive status: : *Oriented to person, place, situation, time and present Physical environment modification needed / anticipated for discharge: : No Medication Management: : Patient states can read and understand medication labels Medication Management: : Patient states they do have transportation to [employer] medications Medication Management: : Patient states can afford medications Planned post hospital services available for patient? : N/A Pharmacy name(s): : [facility] Planned post hospital services covered by insurance plan? : N/A Does Patient have transportation to get home and to follow-up medical appointments when discharged from the hospital? : Yes Would patient like to participate in any Care Coordination programs (if applicable): : Not applicable Comments: : PT HAS HANDICAP BUS PASS Does the patient have electricity at home? : No Comments (electricity): : PT IS HOMELESS Does the patient have running water in their house? : No Comment (running water): : HOMELESS Equipment in use: : Walker - [employer]ator Mental health screen: : No mental health history Psychosocial status: : Independent adult (18-64) Psychosocial status: : Difficult family dynamics Psychosocial status: : Adult with physical limitations Abuse/Neglect: : None Resources / Services in place: : None DCP Re-evaluation QUESTION: ANSWER Would patient like to participate in any Care Coordination programs (if applicable): : Not applicable PATIENT: KANDICE QUINONEZ ENCOUNTER: [id number] MEDICAL RECORD#: [id number] ADMISSION DATE: 12/17/2020 DISCHARGE DATE: 12/18/2020 ATTENDING MD: YASEMIN VELASCO : AGE: 65 MARITAL STATUS: S DC PLAN ID: [id number] FACILITY: [facility] PRINTED ON: 12/19/20 19:25 CT All edits/amendments must be made on the electronic document DICTATION DATE: 12/19/201924 MANAGEMENT TECHNICIAN: SHAYLA 12/19/201924 RPT#: [id number] DC DATE:12/18/20 STATUS: DIS IN [facility] [address] [place] [address] END OF REPORT
== END 2020-12-18 16:00 | disposition home or self-care (01) ==
LOC: D.ER 02:38 → D.M2 04:27 → OBSVTIME 04:28 → D.M2 12-18 16:00
PROVIDERS: Family Medicine; Internal Medicine Interventional Cardiology; ADMIT Family Medicine Adult Medicine; ATTEND Family Medicine Adult Medicine
DX: I16.0 Hypertensive urgency (principal); I20.0 Unstable angina; I10 Essential (primary) hypertension; E78.5 Hyperlipidemia, unspecified; R07.9 Chest pain, unspecified; Z72.0 Tobacco use; Z91.19 Patient's noncompliance with other medical treatment and regimen; D72.829 Elevated white blood cell count, unspecified